=== PATIENT | female | born 1970 | race Caucasian/White ===

== ENCOUNTER 2016-12-12 00:30 | Emergency (ER) | payer SELFPAY ==
--- NOTE | 2016-12-12 06:00 | ED ORDER SUMMARY ---
..... Patient: ANDERSON COLON OrderSheet [facility] VisitID: [id number] [place] [address] 46y, F Registration Date/Time: 12/12/2016 ORDER SHEET Weight: 66.2 kg Allergies: Penicillin GENERAL ORDERS: UA-Culture if indicated Urgent (00:50 12/12/2016 TBowen R.N. per protocol) (0:50 TBowen R.N.) CBC w Diff Urgent (01:04 12/12/2016 Mane CASTILLO) (Ack 1:08 OSnell) (1:12 TBowen R.N.) CMP Urgent (01:04 12/12/2016 Mane CASTILLO) (Ack 1:08 OSnell) (1:12 TBowen R.N.) Ethyl Alcohol Urgent (01:04 12/12/2016 Mane CASTILLO) (Ack 1:08 OSnell) (1:12 TBowen R.N.) MEDICATION ORDERS: IV FLUIDS: Ceftriaxone IV 2 gm/50mL (NOW) (02:41 12/12/2016 Mane CASTILLO) (Ack 2:42 HSoule) (2:51 TBowen R.N.) IV Saline Lock (02:41 12/12/2016 Mane CASTILLO) (Ack 2:42 HSoule) (3:01 TBowen R.N.) ORDER SHEET NOTES: [Electronically signed by Yissel Boucher R.N. (06:14 12/12/2016)] [Electronically signed by Chris Coffamn MD (12:54 12/14/2016)] [Electronically locked/signed by Yissel Boucher R.N. (06:14 12/12/2016)]
--- NOTE | 2016-12-12 06:00 | ED ORDER SUMMARY ---
..... Patient: ANDERSON COLON OrderSheet [facility] VisitID: [id number] [place] [address] 46y, F Registration Date/Time: 12/12/2016 ORDER SHEET Weight: 66.2 kg Allergies: Penicillin GENERAL ORDERS: UA-Culture if indicated Urgent (00:50 12/12/2016 TBowen R.N. per protocol) (0:50 TBowen R.N.) CBC w Diff Urgent (01:04 12/12/2016 Mane CASTILLO) (Ack 1:08 OSnell) (1:12 TBowen R.N.) CMP Urgent (01:04 12/12/2016 Mane CASTILLO) (Ack 1:08 OSnell) (1:12 TBowen R.N.) Ethyl Alcohol Urgent (01:04 12/12/2016 Mane CASTILLO) (Ack 1:08 OSnell) (1:12 TBowen R.N.) MEDICATION ORDERS: IV FLUIDS: Ceftriaxone IV 2 gm/50mL (NOW) (02:41 12/12/2016 Mane CASTILLO) (Ack 2:42 HSoule) (2:51 TBowen R.N.) IV Saline Lock (02:41 12/12/2016 Mane CASTILLO) (Ack 2:42 HSoule) (3:01 TBowen R.N.) ORDER SHEET NOTES: [Electronically signed by Yissel Boucher R.N. (06:14 12/12/2016)] [Electronically signed by Chris Coffman MD (12:54 12/14/2016)] [Electronically locked/signed by Yissel Boucher R.N. (06:14 12/12/2016)]
--- NOTE | 2016-12-12 06:00 | ED CLINICAL REPORT ---
Clinical Report - Physicians/Mid Levels [facility] [address] [place] [address] 12/12/2016 0:31 Patient: ANDERSON COLON Time Seen: 00:52. Arrived- By private vehicle. Historian- patient. HISTORY OF PRESENT ILLNESS Chief Complaint: WEAK ALL OVER. This started UNKNOWN ONSET; Ms Colon has been homeless for most of the last 17 years except for when she was being treated for cervical cancer. Tonight she was at a [employer] and had the proprietor call 911 because of generalized weakness. and is still present. At its maximum, severity described as mild. When seen in the E.D., severity described as mild. Modifying factors. Not worsened by anything. Not relieved by anything. No headache or visual disturbance. She has had fatigue and generalized weakness. (Homeless for years). Recent medical care: Not recently seen/assessed. REVIEW OF SYSTEMS No fever, sore throat, cough, difficulty breathing or chest pain. No abdominal pain, nausea, vomiting, diarrhea or black stools. No bloody stools, difficulty with urination or calf pain. The patient has had chills. No difficulty with ambulation. PAST HISTORY Cervical cancer -. SOCIAL HISTORY Alcohol use. History of drug use: methamphetamines. ADDITIONAL NOTES The nursing notes have been reviewed. PHYSICAL EXAM Vital Signs: 12/12/2016 06:12 BP: 121/62. HR: 71. RR: 16. O2 saturation: 99%. Temp: 98.4 F. Pain level now: 0/10. 12/12/2016 00:32 BP: 107/73. HR: 84. RR: 16. O2 saturation: 100%. Temp: 97.7 F. Pain level now: 0/10. Appearance: Alert. No acute distress. Eyes: Eyes normal inspection. ENT: Pharynx normal. Neck: Normal inspection. CVS: Heart sounds normal. Respiratory: No respiratory distress. Breath sounds normal. Abdomen: No visible injury. Soft and nontender. Back: Normal inspection. Skin: Skin warm. Normal skin color. Extremities: Extremities exhibit normal ROM. Neuro: No cranial nerve deficit. No motor deficit. No weakness. LABS, X-RAYS, AND EKG Laboratory Tests: UA-Culture if indicated: (CLARY: 12/12/2016 00:45) ( [facility] 12/12/2016 01:09) Final results Test Result Flag Units (Reference) URINE COLOR YELLOW URINE APPEARANCE CLOUDY URINE GLUCOSE NEGATIVE (NEGATIVE) URINE BILIRUBIN NEGATIVE (NEGATIVE) URINE KETONE NEGATIVE (NEGATIVE) URINE SPECIFIC GRAVITY >= 1.030 (1.010-1.030) URINE PH 6.0 (5.0-8.0) URINE PROTEIN 3+ (NEGATIVE) URINE UROBILINOGEN 1.0 EU/dL (0.2-1.0) URINE NITRITE POSITIVE (NEGATIVE) URINE BLOOD 2+ (NEGATIVE) URINE LEUK ESTERASE POSITIVE (NEGATIVE) URINE RBC 5-10 rbc/hpf (0-1) URINE WBC 75-100 wbc/hpf (0-1) URINE EPITHELIAL CELLS 1-3 EPI/hpf (0-5) URINE BACTERIA MODERATE (2+ TO 3+) (NONE SEEN) URINE COMMENT CULTURE INDICATED SHORT SAMPLE, THEREFORE MICROSCOPIC WAS PERFORMED ONUNCENTRIFUGED URINE. MICROSCOPIC COUNTS MAY BEINACCURATE/DECREASED.FEW TRANSITIONAL EPITHELIAL CELLS.1+ MUCOUS.URINE CULTURES ARE SET-UP BASED ON THE FOLLOWING CRITERIA:POSITIVE NITRITEPOSITIVE LEUKOCYTE ESTERASEGREATER THAN 10 WHITE BLOOD CELLSMODERATE (2+) OR GREATER BACTERIA CBC w Diff: (CLARY: 12/12/2016 01:10) ( [facility] 12/12/2016 01:17) Final results Test Result Flag Units (Reference) WHITE BLOOD COUNT 4.0 L K/uL (4.5-11.5) RED BLOOD COUNT 3.43 L M/uL (4.00-5.20) HEMOGLOBIN 11.3 L gm/dL (12.0-16.0) HEMATOCRIT 32.9 L % (36.0-46.0) MEAN CELL VOLUME 96 fL (80-100) MEAN CORPUSCULAR HGB 33 pg (26-34) MEAN CORPUSCULAR HGB CONC 34 g/dL (31-37) RED CELL DISTRIBUTION WIDTH 13.5 % (11.6-14.8) PLATELET COUNT 190 K/uL (150-400) NEUTROPHIL % 65.5 % (50-75) LYMPH % 20.3 L % (25-40) MONO % 11.7 % (3-14) EOSINOPHIL % 2.1 % (0-4) BASOPHIL % 0.4 % (0-2) CMP: (CLARY: 12/12/2016 01:10) ( [facility] Final results Test Result Flag Units (Reference) GLUCOSE 113 H mg/dL (70-110) BUN 9 mg/dL (7-18) CREATININE 0.8 mg/dL (0.6-1.3) Estimated GFR >60 mL/min Estimated GFR- >60 mL/min Note: Persistent reduction over 3 months in eGFR<60 mL/min/1.73 m2 defines CKD. Patients with eGFR values>=60 mL/min/1.73 m2 may also have CKD if evidence ofpersistent proteinuria. Additional information may be foundat www.kidney.org. SODIUM 144 mmol/L (136-145) POTASSIUM 3.5 mmol/L (3.5-5.1) CHLORIDE 107 mmol/L (98-107) CARBON DIOXIDE 28 mmol/L (21-32) CALCIUM 8.1 L mg/dL (8.5-10.1) TOTAL PROTEIN 7.2 g/dL (6.4-8.2) ALBUMIN 3.6 g/dL (3.3-5.0) BILIRUBIN, TOTAL 0.3 mg/dL (0.0-1.0) ALKALINE PHOSPHATASE 88 U/L (46-116) AST (SGOT) 48 H U/L (15-37) ALT (SGPT) 55 U/L (12-78) ETHYL ALCOHOL 18 H mg/dL (3-10) Culture, Urine: (CLARY: 12/12/2016 00:45) ( [facility]14[facility] 11:13) Final results Test Result Flag Units (Reference) CULTURE, URINE DATE: 12/14/16 PRELIM REPORT: FINAL REPORT -- ESCCOL ESBL ISOLATED?: ESBL ISOLATED * QUANTITATIVE URINE GROWTH: GREATER THAN 100,000 CFU/mL -- MXD QUANTITATIVE URINE GROWTH: 10,000 TO 50,000 CFU/mL ID AND SENS TO FOLLOW: NO FURTHER WORKUP AMOXICILLIN/CLAVULANATE AMPICILLIN R AMPICILLIN/SULBACTAM R CEFAZOLIN R CEFTRIAXONE R CEFEPIME R CEFUROXIME CIPROFLOXACIN R ERTAPENEM S GENTAMICIN S IMIPENEM S LEVOFLOXACIN R MEROPENEM S NITROFURANTOIN S TETRACYCLINE PIP/TAZO S TRIMETHOPRIM/SULFAMETHOXAZOLE R . PROGRESS AND PROCEDURES Course of Care: Ms Colon has a UTI. No other significant abnormalities She was treated with IV Ceftriazone because of less than certain follow up. No systemic symptoms to indicate pyelo. Disposition: Discharged. Condition: stable. CLINICAL IMPRESSION Acute urinary tract infection. HOMELESSNESS. INSTRUCTIONS (PLEASE CONSIDER SUBSTANCE ABUSE TREATMENT: JORDEN POLLARD OR JACEY BRANCH OF [place] MYLAM WE TREATED YOUR URINARY TRACT INFECTION WITH CEFTRIAXONE. YOU ALSO HAVE MACROBID TO TAKE BY MOUTH IMMEDIATE RECHECK IN THE ED IF YOU HAVE FEVER, VOMITING OR IF YOU ARE STILL HAVING URINARY TRACT INFECTION SYMPTOMS.). Prescription Medications: Macrobid 100 mg: Take 1 capsule orally every 12 hours for 7 days. No refills. Substitution is permissible. (Electronically signed by Chris Coffman MD 12/14/2016 12:54)
--- NOTE | 2016-12-12 06:00 | ED CLINICAL REPORT ---
Clinical Report - Physicians/Mid Levels [facility] [address] [place] [address] 12/12/2016 0:31 Patient: ANDERSON COLON Time Seen: 00:52. Arrived- By private vehicle. Historian- patient. HISTORY OF PRESENT ILLNESS Chief Complaint: WEAK ALL OVER. This started UNKNOWN ONSET; Ms Colon has been homeless for most of the last 17 years except for when she was being treated for cervical cancer. Tonight she was at a [employer] and had the proprietor call 911 because of generalized weakness. and is still present. At its maximum, severity described as mild. When seen in the E.D., severity described as mild. Modifying factors. Not worsened by anything. Not relieved by anything. No headache or visual disturbance. She has had fatigue and generalized weakness. (Homeless for years). Recent medical care: Not recently seen/assessed. REVIEW OF SYSTEMS No fever, sore throat, cough, difficulty breathing or chest pain. No abdominal pain, nausea, vomiting, diarrhea or black stools. No bloody stools, difficulty with urination or calf pain. The patient has had chills. No difficulty with ambulation. PAST HISTORY Cervical cancer -. SOCIAL HISTORY Alcohol use. History of drug use: methamphetamines. ADDITIONAL NOTES The nursing notes have been reviewed. PHYSICAL EXAM Vital Signs: 12/12/2016 06:12 BP: 121/62. HR: 71. RR: 16. O2 saturation: 99%. Temp: 98.4 F. Pain level now: 0/10. 12/12/2016 00:32 BP: 107/73. HR: 84. RR: 16. O2 saturation: 100%. Temp: 97.7 F. Pain level now: 0/10. Appearance: Alert. No acute distress. Eyes: Eyes normal inspection. ENT: Pharynx normal. Neck: Normal inspection. CVS: Heart sounds normal. Respiratory: No respiratory distress. Breath sounds normal. Abdomen: No visible injury. Soft and nontender. Back: Normal inspection. Skin: Skin warm. Normal skin color. Extremities: Extremities exhibit normal ROM. Neuro: No cranial nerve deficit. No motor deficit. No weakness. LABS, X-RAYS, AND EKG Laboratory Tests: UA-Culture if indicated: (CLARY: 12/12/2016 00:45) ( [facility] 12/12/2016 01:09) Final results Test Result Flag Units (Reference) URINE COLOR YELLOW URINE APPEARANCE CLOUDY URINE GLUCOSE NEGATIVE (NEGATIVE) URINE BILIRUBIN NEGATIVE (NEGATIVE) URINE KETONE NEGATIVE (NEGATIVE) URINE SPECIFIC GRAVITY >= 1.030 (1.010-1.030) URINE PH 6.0 (5.0-8.0) URINE PROTEIN 3+ (NEGATIVE) URINE UROBILINOGEN 1.0 EU/dL (0.2-1.0) URINE NITRITE POSITIVE (NEGATIVE) URINE BLOOD 2+ (NEGATIVE) URINE LEUK ESTERASE POSITIVE (NEGATIVE) URINE RBC 5-10 rbc/hpf (0-1) URINE WBC 75-100 wbc/hpf (0-1) URINE EPITHELIAL CELLS 1-3 EPI/hpf (0-5) URINE BACTERIA MODERATE (2+ TO 3+) (NONE SEEN) URINE COMMENT CULTURE INDICATED SHORT SAMPLE, THEREFORE MICROSCOPIC WAS PERFORMED ONUNCENTRIFUGED URINE. MICROSCOPIC COUNTS MAY BEINACCURATE/DECREASED.FEW TRANSITIONAL EPITHELIAL CELLS.1+ MUCOUS.URINE CULTURES ARE SET-UP BASED ON THE FOLLOWING CRITERIA:POSITIVE NITRITEPOSITIVE LEUKOCYTE ESTERASEGREATER THAN 10 WHITE BLOOD CELLSMODERATE (2+) OR GREATER BACTERIA CBC w Diff: (CLARY: 12/12/2016 01:10) ( [facility] 12/12/2016 01:17) Final results Test Result Flag Units (Reference) WHITE BLOOD COUNT 4.0 L K/uL (4.5-11.5) RED BLOOD COUNT 3.43 L M/uL (4.00-5.20) HEMOGLOBIN 11.3 L gm/dL (12.0-16.0) HEMATOCRIT 32.9 L % (36.0-46.0) MEAN CELL VOLUME 96 fL (80-100) MEAN CORPUSCULAR HGB 33 pg (26-34) MEAN CORPUSCULAR HGB CONC 34 g/dL (31-37) RED CELL DISTRIBUTION WIDTH 13.5 % (11.6-14.8) PLATELET COUNT 190 K/uL (150-400) NEUTROPHIL % 65.5 % (50-75) LYMPH % 20.3 L % (25-40) MONO % 11.7 % (3-14) EOSINOPHIL % 2.1 % (0-4) BASOPHIL % 0.4 % (0-2) CMP: (CLARY: 12/12/2016 01:10) ( [facility]) Final results Test Result Flag Units (Reference) GLUCOSE 113 H mg/dL (70-110) BUN 9 mg/dL (7-18) CREATININE 0.8 mg/dL (0.6-1.3) Estimated GFR >60 mL/min Estimated GFR- >60 mL/min Note: Persistent reduction over 3 months in eGFR<60 mL/min/1.73 m2 defines CKD. Patients with eGFR values>=60 mL/min/1.73 m2 may also have CKD if evidence ofpersistent proteinuria. Additional information may be foundat www.kidney.org. SODIUM 144 mmol/L (136-145) POTASSIUM 3.5 mmol/L (3.5-5.1) CHLORIDE 107 mmol/L (98-107) CARBON DIOXIDE 28 mmol/L (21-32) CALCIUM 8.1 L mg/dL (8.5-10.1) TOTAL PROTEIN 7.2 g/dL (6.4-8.2) ALBUMIN 3.6 g/dL (3.3-5.0) BILIRUBIN, TOTAL 0.3 mg/dL (0.0-1.0) ALKALINE PHOSPHATASE 88 U/L (46-116) AST (SGOT) 48 H U/L (15-37) ALT (SGPT) 55 U/L (12-78) ETHYL ALCOHOL 18 H mg/dL (3-10) Culture, Urine: (CLARY: 12/12/2016 00:45) ( [facility]/14[facility]2016 11:13) Final results Test Result Flag Units (Reference) CULTURE, URINE DATE: 12/14/16 PRELIM REPORT: FINAL REPORT -- ESCCOL ESBL ISOLATED?: ESBL ISOLATED * QUANTITATIVE URINE GROWTH: GREATER THAN 100,000 CFU/mL -- MXD QUANTITATIVE URINE GROWTH: 10,000 TO 50,000 CFU/mL ID AND SENS TO FOLLOW: NO FURTHER WORKUP AMOXICILLIN/CLAVULANATE AMPICILLIN R AMPICILLIN/SULBACTAM R CEFAZOLIN R CEFTRIAXONE R CEFEPIME R CEFUROXIME CIPROFLOXACIN R ERTAPENEM S GENTAMICIN S IMIPENEM S LEVOFLOXACIN R MEROPENEM S NITROFURANTOIN S TETRACYCLINE PIP/TAZO S TRIMETHOPRIM/SULFAMETHOXAZOLE R . PROGRESS AND PROCEDURES Course of Care: Ms Colon has a UTI. No other significant abnormalities She was treated with IV Ceftriazone because of less than certain follow up. No systemic symptoms to indicate pyelo. Disposition: Discharged. Condition: stable. CLINICAL IMPRESSION Acute urinary tract infection. HOMELESSNESS. INSTRUCTIONS (PLEASE CONSIDER SUBSTANCE ABUSE TREATMENT: JORDEN POLLARD OR JACEY BRANCH OF [place] MYLAM WE TREATED YOUR URINARY TRACT INFECTION WITH CEFTRIAXONE. YOU ALSO HAVE MACROBID TO TAKE BY MOUTH IMMEDIATE RECHECK IN THE ED IF YOU HAVE FEVER, VOMITING OR IF YOU ARE STILL HAVING URINARY TRACT INFECTION SYMPTOMS.). Prescription Medications: Macrobid 100 mg: Take 1 capsule orally every 12 hours for 7 days. No refills. Substitution is permissible. (Electronically signed by Chris Coffman MD 12/14/2016 12:54)
--- NOTE | 2016-12-12 06:00 | ED NURSING NOTES ---
Clinical Report - Nurses [facility] [address] [place] [address] 12/12/2016 0:31 Patient: ANDERSON COLON TRIAGE Triage time 00:32. Acuity: LEVEL 3. Chief Complaint: MUSCLE ACHES and WEAKNESS. --00:36 TonyaB, R.N. 00:32 12/12/16. BP: 107/73. HR: 84. RR: 16. O2 saturation: 100%. Temp: 97.7 F. Pain level now: 0. --00:36 TonyaB, R.N. Weight: 66.2 kg. Height/Length: 65 inches. BMI: 24.3. --00:35 TonyaB, R.N. Medications None. --00:33 TonyaB, R.N. Allergies Penicillin. --00:33 TonyaB, R.N. History Arrived by EMS. Historian: patient. This started just prior to arrival. 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 PAST MEDICAL HX: Immunizations: up-to-date. The patient is post-menopausal. SOCIAL HX: Heavy tobacco smoker (cigarette)- less than 1 pack per day. Alcohol use; consumes a large amount of beer daily. History of heavy drug use: methamphetamines. Recently used drugs today. No infectious disease exposure. SELF HARM ASSESSMENT: A self harm assessment was performed. The patient answered "no" to the question "Have you recently felt down, depressed, or hopeless?", "Have you noticed less interest or pleasure in doing things?", "Do you have thoughts of harming or killing yourself?", "Are you here because you tried to hurt yourself?", "Have you ever tried to hurt yourself before today?", "Have you recently had thoughts about harming or killing others?" and "Do you have any dangerous items in your possession?". FALL RISK ASSESSMENT: Fall risk assessment completed. No fall risk identified. NUTRITIONAL RISK ASSESSMENT: The nutritional risk assessment revealed no deficiencies. FUNCTIONAL ASSESSMENT: Functional assessment: no impairments noted. LEARNING NEEDS ASSESSMENT: The learning needs assessment revealed no barriers. ABUSE ASSESSMENT: Abuse assessment: The patient was asked "Do you feel safe in your home?". SKIN INTEGRITY ASSESSMENT: Skin integrity risk assessment completed. No skin integrity risk identified. --00:36 Martin To. PROBLEMS: Cancer. --00:34 Martin To. Interventions ID band on patient. To treatment room. --00:36 Martin To. PHYSICAL ASSESSMENT To room via stretcher. GENERAL / NEURO / PSYCH: Alert. Oriented X 4. Appears in no acute distress. HEENT: Pupils equal, round and reactive to light. No facial asymmetry noted. Mucous membranes are pink. RESPIRATORY: Respirations not labored. Chest nontender. Breath sounds within normal limits. CVS: Normal sinus rhythm noted. Capillary refill less than 2 seconds. Pulses within normal limits. GI / : Abdomen soft and nontender and normal bowel sounds. SKIN: Skin is warm and dry. Generalized skin rash. Normal skin turgor. --00:36 Martin To. NURSING PROGRESS NOTES Patient identifiers checked. Call light placed in reach. Side rails up. Bed placed in lowest position. Brakes of bed on. --00:36 Twyla To ( pt ambulated to the restroom, no complications). --00:42 Martin To. Patient ID band checked for patient name and birthdate: patient confirmed. Blood samples drawn from the right antecubital space with Vacutainer and 18g butterfly by nurse ; labeled in presence of the patient and sent to lab: [facility]. --01:13 Twyla To 02:51 12/12/2016 Site #1 started via IV in the left antecubital space with an 20g angiocath, with aseptic technique and good blood return; one attempt. Saline lock flushed with 10 mL saline. --02:51 Twyla To 02:51 12/12/2016 Started 2 gm of Ceftriaxone IVPB in bag #1 50 mL; at 100 mL/hr over 30 minute(s) via site #1 via IV pump. Allergies verified and confirmed 5 rights. IV patency established. IV site checked: no pain, redness, or swelling. IV flushed thoroughly pre- and post-medication administration. --02:51 Twyla To ( sandwich and soda given to the pt at this time). --02:52 Twyla To 03:23 12/12/2016 Ceftriaxone IVPB Discontinued: bag #1 infused. Total amount infused: 50 mL. IV patency established. IV site checked: no pain, redness, or swelling. IV flushed thoroughly. --03:48 Twyla To ( pt resting in bed, no distress noted, awaiting MD to dispo). --04:17 Twyla To The patient is sleeping. --05:24 Twyla To DISPOSITION / DISCHARGE 06:12 12/12/2016 Site #1 removed upon discharge. Catheter intact. Pressure dressing applied. --06:12 Twyla To Departure time: 06:13. Condition at departure: improved. No learning barriers present. Discharge instructions provided and reviewed with the patient. Reviewed medication(s) side effects, precautions, dosing and course information. Prescription(s) given to the patient. Patient verbalized understanding. Written instructions provided in Greenlandic. No warning instructions, treatment instructions, referrals given to the patient, diet instructions or activity restrictions. No note given, follow up contact number given or stop smoking instructions. The patient was discharged by the physician. She was discharged home. She left the Emergency Department ambulatory and via (walking). Driving (na). FALL RISK ASSESSMENT: Fall risk assessment completed. No fall risk identified. --06:13 Twyla To 06:11 12/12/16. BP: 121/62. HR: 71. RR: 16. O2 saturation: 99%. Temp: 98.4 F. Pain level now: 0/10. --06:13 Twyla To Locked/Released at 12/12/2016 6:14 by Twyla To
--- NOTE | 2016-12-14 12:55 | ED MAR SUMMARY ---
..... Medication Administration Record Merged With [facility] [address] [place] [address] Patient: ANDERSON COLON Visit ID: [id number] 46y, F Weight: 66.2 kg Height/Length: 65 in BMI: 24.3 ALLERGIES: Penicillin Start 02:51 12/12/2016 Yousuf RJuanN., Stop 03:23 12/12/2016 Twyla To Medication Administered: CEFTRIAXONE [IVPB], Dose: 2 gm IVPB over 30 minute(s), Rate: 100 mL/hr, Dispensed: 50 mL bag, Site: #1 left AC. Medication Ordered: Ceftriaxone IV 2 gm/50mL (NOW).
--- NOTE | 2016-12-14 12:55 | ED DISCHARGE INSTRUCTIONS ---
Patient: ANDERSON COLON General Instructions [facility] VisitID: [id number] [place] [address] 46y, F Registration Date/Time: 12/12/2016 Acute urinary tract infection. HOMELESSNESS. INSTRUCTIONS (PLEASE CONSIDER SUBSTANCE ABUSE TREATMENT: EVERCIARA POLLARD OR JACEY BRANCH OF [place] MYLAM WE TREATED YOUR URINARY TRACT INFECTION WITH CEFTRIAXONE. YOU ALSO HAVE MACROBID TO TAKE BY MOUTH IMMEDIATE RECHECK IN THE ED IF YOU HAVE FEVER, VOMITING OR IF YOU ARE STILL HAVING URINARY TRACT INFECTION SYMPTOMS.). Prescription Medications: Macrobid 100 mg: Take 1 capsule orally every 12 hours for 7 days. No refills. Substitution is permissible. ADDITIONAL INFORMATION Bladder Infection,Female (Adult) A bladder infection ("cystitis" or "UTI") usually causes a constant urge to urinate and a burning when passing urine. Urine may be cloudy, smelly or dark. There may be pain in the lower abdomen. A bladder infection occurs when bacteria from the vaginal area enter the bladder opening (urethra). This can occur from sexual intercourse, wearing tight clothing, dehydration and other factors. Home Care: Drink lots of fluids (at least 6-8 glasses a day, unless you must restrict fluids for other medical reasons). This will force the medicine into your urinary system and flush the bacteria out of your body. Avoid sexual intercourse until your symptoms are gone. Avoid caffeine, alcohol and spicy foods. These can irritate the bladder. A bladder infection is treated with antibiotics. You may also be given Pyridium (generic = phenazopyridine) to reduce the burning sensation. This medicine will cause your urine to become a bright orange color. The orange urine may stain clothing. You may wear a pad or panty-liner to protect clothing. Preventing Future Infections: Always wipe from front to back after a bowel movement. Keep the genital area clean and dry. Drink plenty of fluids each day to avoid dehydration. Both sexual partners should wash before intercourse. Urinate right after intercourse to flush out the bladder. Wear cotton underwear and cotton-lined panty hose; avoid tight-fitting pants. If you are on control pills and are having frequent bladder infections, discuss with your doctor. Follow Up: Return to this facility or see your doctor if ALL symptoms are not gone after three days of treatment. Get Prompt Medical Attention if any of the following occur: Fever of 100.4F (38C) or higher, or as directed by your healthcare provider No improvement by the third day of treatment Increasing back or abdominal pain Repeated vomiting; unable to keep medicine down Weakness, dizziness or fainting Vaginal discharge Pain, redness or swelling in the labia (outer vaginal area) You have been given the following additional information: Bladder Infection, Female (Adult) (Electronically signed by Chris Coffman MD 12/14/2016 12:54)
--- NOTE | 2016-12-14 12:55 | ED DISCHARGE INSTRUCTIONS ---
Patient: ANDERSON COLON General Instructions [facility] VisitID: [id number] [place] [address] 46y, F Registration Date/Time: 12/12/2016 Acute urinary tract infection. HOMELESSNESS. INSTRUCTIONS (PLEASE CONSIDER SUBSTANCE ABUSE TREATMENT: EVERCIARA POLLARD OR JACEY BRANCH OF DAMASCUS MYLAM WE TREATED YOUR URINARY TRACT INFECTION WITH CEFTRIAXONE. YOU ALSO HAVE MACROBID TO TAKE BY MOUTH IMMEDIATE RECHECK IN THE ED IF YOU HAVE FEVER, VOMITING OR IF YOU ARE STILL HAVING URINARY TRACT INFECTION SYMPTOMS.). Prescription Medications: Macrobid 100 mg: Take 1 capsule orally every 12 hours for 7 days. No refills. Substitution is permissible. ADDITIONAL INFORMATION Bladder Infection,Female (Adult) A bladder infection ("cystitis" or "UTI") usually causes a constant urge to urinate and a burning when passing urine. Urine may be cloudy, smelly or dark. There may be pain in the lower abdomen. A bladder infection occurs when bacteria from the vaginal area enter the bladder opening (urethra). This can occur from sexual intercourse, wearing tight clothing, dehydration and other factors. Home Care: Drink lots of fluids (at least 6-8 glasses a day, unless you must restrict fluids for other medical reasons). This will force the medicine into your urinary system and flush the bacteria out of your body. Avoid sexual intercourse until your symptoms are gone. Avoid caffeine, alcohol and spicy foods. These can irritate the bladder. A bladder infection is treated with antibiotics. You may also be given Pyridium (generic = phenazopyridine) to reduce the burning sensation. This medicine will cause your urine to become a bright orange color. The orange urine may stain clothing. You may wear a pad or panty-liner to protect clothing. Preventing Future Infections: Always wipe from front to back after a bowel movement. Keep the genital area clean and dry. Drink plenty of fluids each day to avoid dehydration. Both sexual partners should wash before intercourse. Urinate right after intercourse to flush out the bladder. Wear cotton underwear and cotton-lined panty hose; avoid tight-fitting pants. If you are on control pills and are having frequent bladder infections, discuss with your doctor. Follow Up: Return to this facility or see your doctor if ALL symptoms are not gone after three days of treatment. Get Prompt Medical Attention if any of the following occur: Fever of 100.4F (38C) or higher, or as directed by your healthcare provider No improvement by the third day of treatment Increasing back or abdominal pain Repeated vomiting; unable to keep medicine down Weakness, dizziness or fainting Vaginal discharge Pain, redness or swelling in the labia (outer vaginal area) You have been given the following additional information: Bladder Infection, Female (Adult) (Electronically signed by Chris Coffman MD 12/14/2016 12:54)
--- NOTE | 2016-12-14 12:55 | ED MED RECONCILIATION SUMMARY ---
Patient: ANDERSON COLON Medication Reconciliation Report [facility] VisitID: [id number] [address] [place] [address] 46y, F Registration Date/Time: 12/12/2016 Weight: 66.2 kg Height/Length: 65 in. BMI: 24.3 ALLERGIES: Penicillin The patient's Home Medications are listed below: NONE. The source(s) of the original Home Medication information: Not obtained. The following Medications were given to the patient in the Emergency Department: Ceftriaxone [IVPB] IVPB bolus 0, then 2 gm 100 mL/hr, administered: 12/12/2016 2:51:00 AM The following Medications were prescribed to the patient: Macrobid 100 mg: Take 1 capsule orally every 12 hours for 7 days. No refills. Substitution is permissible. -- Chris Coffman MD
--- NOTE | 2016-12-14 12:55 | ED MAR SUMMARY ---
..... Medication Administration Record [facility] [address] [place] [address] Patient: ANDERSON COLON Visit ID: [id number] 46y, F Weight: 66.2 kg Height/Length: 65 in BMI: 24.3 ALLERGIES: Penicillin Start 02:51 12/12/2016 Yousuf RJuanN., Stop 03:23 12/12/2016 Twyla To Medication Administered: CEFTRIAXONE [IVPB], Dose: 2 gm IVPB over 30 minute(s), Rate: 100 mL/hr, Dispensed: 50 mL bag, Site: #1 left AC. Medication Ordered: Ceftriaxone IV 2 gm/50mL (NOW).
--- NOTE | 2016-12-14 12:55 | ED MED RECONCILIATION SUMMARY ---
Patient: ANDERSON COLON Medication Reconciliation Report [facility] VisitID: [id number] [address] [place] [address] 46y, F Registration Date/Time: 12/12/2016 Weight: 66.2 kg Height/Length: 65 in. BMI: 24.3 ALLERGIES: Penicillin The patient's Home Medications are listed below: NONE. The source(s) of the original Home Medication information: Not obtained. The following Medications were given to the patient in the Emergency Department: Ceftriaxone [IVPB] IVPB bolus 0, then 2 gm 100 mL/hr, administered: 12/12/2016 2:51:00 AM The following Medications were prescribed to the patient: Macrobid 100 mg: Take 1 capsule orally every 12 hours for 7 days. No refills. Substitution is permissible. -- Chris Coffman MD
== END 2016-12-12 06:05 | disposition home or self-care (01) ==
LOC: ED SRH 00:30
DX: N39.0 Urinary tract infection, site not specified (principal); Z59.0 Homelessness; Z85.41 Personal history of malignant neoplasm of cervix uteri
CPT/HCPCS: 90004; 90100; 90148; 90469; 92010; 95059

== ENCOUNTER 2016-12-19 16:55 | Emergency (ER) | payer SELFPAY ==
--- NOTE | 2016-12-19 18:36 | ED ORDER SUMMARY ---
..... Patient: ANDERSON COLON OrderSheet [facility] VisitID: [id number] [address] [place] [address] 46y, F Registration Date/Time: 12/19/2016 ORDER SHEET Weight: 68.0 kg (stated) Allergies: Penicillin GENERAL ORDERS: UA-Culture if indicated Urgent (17:01 12/19/2016 Yadi Wakefield verbal order read back to Myrtle DAVIS) ([facility] 17:03 [facility] Tech1) MEDICATION ORDERS: IV FLUIDS: ORDER SHEET NOTES: [Electronically signed by Sheriff Twyla De Jesus (18:47 12/19/2016)] [Electronically signed by Eloisa Steward PA-C (23:54 12/19/2016)] [Electronically locked/signed by Sheriff Twyla De Jesus (18:47 12/19/2016)]
--- NOTE | 2016-12-19 18:36 | ED NURSING NOTES ---
Clinical Report - Nurses [facility] [address] [place] [address] 12/19/2016 16:54 Patient: ANDERSON COLON TRIAGE Triage time 16:58. Chief Complaint: VAGINAL BLEED and PAINFUL URINATION. --17:05 Sheriff De Jesus R.N. 16:58 12/19/16. BP: 119/60. HR: 101. RR: 20. O2 saturation: 99%. Temp: 98.8 F. Pain level now: 01/02. --17:05 Sheriff De Jesus R.N. Weight: 68 kg stated. Height/Length: 65 inches Per Patient. BMI: 25. --17:01 Sheriff De Jesus R.N. Medications None. --17:00 Sheriff De Jesus R.N. Allergies Penicillin. --17:00 Sheriff De Jesus R.N. History Arrived by private vehicle. Historian: patient. This started today. ( Vaginal bleeding, heavy since this morning. Painful urination. On antibiotic for current UTI.). PAST MEDICAL HX: Denies current . SURGERY HX: No history of previous surgery. SOCIAL HX: Heavy tobacco smoker- less than 1 pack per day. Occasional alcohol use. No drug use. SKIN INTEGRITY ASSESSMENT: Skin integrity risk assessment was performed. (SORES on bilateral legs). FALL RISK ASSESSMENT: Fall risk assessment completed. No fall risk identified. NUTRITIONAL RISK ASSESSMENT: The nutritional risk assessment revealed no deficiencies. FUNCTIONAL ASSESSMENT: Functional assessment: no impairments noted. LEARNING NEEDS ASSESSMENT: The learning needs assessment revealed no barriers. --17:05 Sheriff De Jesus R.N. PROBLEMS: UTI - Urinary Tract Infection. Cancer. --17:00 Sheriff De Jesus R.N. ADDITIONAL SURGERIES: no known surgeries. DISPOSITION / DISCHARGE Condition at departure: stable. No learning barriers present. Discharge instructions provided and reviewed with the patient. Reviewed medication(s) side effects, precautions, dosing and course information. Prescription(s) given to the patient. Patient verbalized understanding. Written instructions provided in Georgian. The patient was discharged by the physician accounting manager assistant controller. She was discharged home and accompanied by solar photovoltaic installer. She left the Emergency Department ambulatory and via ambulance. Calender Machine Operator Helper driving. --18:47 Sheriff De Jesus R.N. Locked/Released at 12/19/2016 18:47 by Sheriff De Jesus R.N.
--- NOTE | 2016-12-19 18:36 | ED ORDER SUMMARY ---
..... Patient: ANDERSON COLON OrderSheet [facility] VisitID: [id number] [address] [place] [address] 46y, F Registration Date/Time: 12/19/2016 ORDER SHEET Weight: 68.0 kg (stated) Allergies: Penicillin GENERAL ORDERS: UA-Culture if indicated Urgent (17:01 12/19/2016 Yadi Wakefield verbal order read back to Myrtle DAVIS) ([facility] 17:03 [facility] Tech1) MEDICATION ORDERS: IV FLUIDS: ORDER SHEET NOTES: [Electronically signed by Sheriff Twyla De Jesus (18:47 12/19/2016)] [Electronically signed by Eloisa Steward PA-C (23:54 12/19/2016)] [Electronically locked/signed by Sheriff Twyla De Jesus (18:47 12/19/2016)]
--- NOTE | 2016-12-19 18:36 | ED NURSING NOTES ---
Clinical Report - Nurses [facility] [address] [place] [address] 12/19/2016 16:54 Patient: ANDERSON COLON TRIAGE Triage time 16:58. Chief Complaint: VAGINAL BLEED and PAINFUL URINATION. --17:05 Sheriff De Jesus R.N. 16:58 12/19/16. BP: 119/60. HR: 101. RR: 20. O2 saturation: 99%. Temp: 98.8 F. Pain level now: 01/02. --17:05 Sheriff De Jesus R.N. Weight: 68 kg stated. Height/Length: 65 inches Per Patient. BMI: 25. --17:01 Sheriff De Jesus R.N. Medications None. --17:00 Sheriff De Jesus R.N. Allergies Penicillin. --17:00 Sheriff De Jesus R.N. History Arrived by private vehicle. Historian: patient. This started today. ( Vaginal bleeding, heavy since this morning. Painful urination. On antibiotic for current UTI.). PAST MEDICAL HX: Denies current . SURGERY HX: No history of previous surgery. SOCIAL HX: Heavy tobacco smoker- less than 1 pack per day. Occasional alcohol use. No drug use. SKIN INTEGRITY ASSESSMENT: Skin integrity risk assessment was performed. (SORES on bilateral legs). FALL RISK ASSESSMENT: Fall risk assessment completed. No fall risk identified. NUTRITIONAL RISK ASSESSMENT: The nutritional risk assessment revealed no deficiencies. FUNCTIONAL ASSESSMENT: Functional assessment: no impairments noted. LEARNING NEEDS ASSESSMENT: The learning needs assessment revealed no barriers. --17:05 Sheriff De Jesus R.N. PROBLEMS: UTI - Urinary Tract Infection. Cancer. --17:00 Sheriff De Jesus R.N. ADDITIONAL SURGERIES: no known surgeries. DISPOSITION / DISCHARGE Condition at departure: stable. No learning barriers present. Discharge instructions provided and reviewed with the patient. Reviewed medication(s) side effects, precautions, dosing and course information. Prescription(s) given to the patient. Patient verbalized understanding. Written instructions provided in [place]. The patient was discharged by the physician assistant foreman. She was discharged home and accompanied by blue print control clerk. She left the Emergency Department ambulatory and via ambulance. Transaction Advisory Services Manager driving. --18:47 Sheriff De Jesus R.N. Locked/Released at 12/19/2016 18:47 by Sheriff De Jesus R.N.
--- NOTE | 2016-12-19 18:36 | ED CLINICAL REPORT ---
Clinical Report - Physicians/Mid Levels [facility] [address] [place] [address] 12/19/2016 16:54 Patient: ANDERSON COLON Time Seen: 17:27; initial patient contact. Arrived- By private vehicle. Historian- patient. HISTORY OF PRESENT ILLNESS Chief Complaint: VAGINAL BLEEDING. This started today ( Vaginal bleeding, heavy since this morning. Painful urination. On antibiotic for current UTI.). 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 The patient has had abdominal pain. She has had a copious amount of yellow vaginal discharge. She has had pain with urination and urgency of urination. The patient has had urinary frequency and hematuria. Not sexually active. Does not use control measures. Similar symptoms previously: Many times. Recent medical care: The patient was seen recently at another facility in a clinic (on macrobid). REVIEW OF SYSTEMS The patient has had a headache and anorexia. All systems otherwise negative, except as recorded above. PAST HISTORY See nurses notes. Problems: Lifestyle / Substance Problems. Cancer. Additional Surgeries: no known surgeries. Medications: None. Allergies: Penicillin. SOCIAL HISTORY Regular alcohol use. Last drink was just prior to arrival, 3 hours ago. History of drug use 14 days ago: methamphetamines. Is a recovering addict. FAMILY HISTORY Negative. ADDITIONAL NOTES The nursing notes have been reviewed with agreement regarding the chief complaint, HPI, ROS, PMH and patient medications and allergies. PHYSICAL EXAM Vital Signs: 12/19/2016 16:58 BP: 119/60. HR: 101. RR: 20. O2 saturation: 99%. Temp: 98.8 F. Pain level now: 6/10. Have been reviewed. Blood pressure normal. Appearance: Alert. Oriented X3. No acute distress. Anxious. ( aggitated, feels no one listens to her is trying to stay clean, has not been using methamphetamines in 2 weeks, admits to 4 beers today). She appears uncomfortable, is restless, appears hostile and agitated and appears unkempt. She appears malnourished. Anxious. Patient in mild distress. ENT: Pharynx normal. Neck: Neck supple. CVS: Heart sounds normal. Respiratory: No respiratory distress. Breath sounds normal. Chest nontender. Abdomen: Soft. Mild tenderness in the suprapubic area with guarding present. No rebound tenderness. No organomegaly. No mass. Back: Normal external inspection. : Speculum exam performed. A copious amount of thin and yellow vaginal discharge present (urine). No cervicitis. Tenderness present on bimanual exam. No tenderness with movement of the cervix. (pt has a fistula between the superior aspect of her vagina and her bladder with redness and minor bleeding in area and copious amounts of urine coming into the vagina from the fistula.). Extremities: Bilateral mild 1+ pitting edema of the lower extremities involving both feet. Neuro: Oriented X 3. LABS, X-RAYS, AND EKG Laboratory Tests: UA-Culture if indicated: (CLARY: 12/19/2016 17:05) ( [id number] 12/19/2016 17:29) Final results Test Result Flag Units (Reference) URINE COLOR YELLOW URINE APPEARANCE CLEAR URINE GLUCOSE NEGATIVE (NEGATIVE) URINE BILIRUBIN NEGATIVE (NEGATIVE) URINE KETONE TRACE (NEGATIVE) URINE SPECIFIC GRAVITY 1.020 (1.010-1.030) URINE PH 6.0 (5.0-8.0) URINE PROTEIN TRACE (NEGATIVE) URINE UROBILINOGEN 1.0 EU/dL (0.2-1.0) URINE NITRITE NEGATIVE (NEGATIVE) URINE BLOOD NEGATIVE (NEGATIVE) URINE LEUK ESTERASE POSITIVE (NEGATIVE) URINE RBC NONE SEEN rbc/hpf (0-1) URINE WBC 15-25 wbc/hpf (0-1) URINE EPITHELIAL CELLS 0-1 EPI/hpf (0-5) URINE BACTERIA FEW (1+) (NONE SEEN) URINE COMMENT CULTURE INDICATED URINE CULTURES ARE SET-UP BASED ON THE FOLLOWING CRITERIA:POSITIVE NITRITEPOSITIVE LEUKOCYTE ESTERASEGREATER THAN 10 WHITE BLOOD CELLSMODERATE (2+) OR GREATER BACTERIA . PROGRESS AND PROCEDURES Course of Care: upon discharge patient became agitated, stated that she is now feeling 'suicidal and wants to kill herself'. pt was then readmitted for psych evaluation with the PAT team who was present in the Ed and agreed to see her. Patient is stable. CLINICAL IMPRESSION Acute urinary tract infection with cystitis. 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 INSTRUCTIONS No strenuous activity. Rest. Drink plenty of fluids. (pt re admitted for psych evaluation after discharge dispositon for uti/fistula.). Warnings: Further evaluation is necessary. GENERAL WARNINGS: Return or contact your physician immediately if your condition worsens or changes unexpectedly, if not improving as expected, or if other problems arise. Prescription Medications: Levaquin 500 mg: take 1 tab orally every day for 10 days. No refills. Substitution is permissible. Understanding of the discharge instructions verbalized by patient. (Electronically signed by Eloisa Steward PA-C 12/19/2016 23:54)
--- NOTE | 2016-12-19 23:54 | ED MAR SUMMARY ---
..... Medication Administration Record [facility] [address] [place], [place] [id number] Patient: ANDERSON COLON Visit ID: [id number] 46y, F Weight: 68.0 kg Height/Length: 65 in BMI: 25 ALLERGIES: Penicillin
--- NOTE | 2016-12-19 23:54 | ED MAR SUMMARY ---
..... Medication Administration Record [facility] [address] [place], [place] [id number] Patient: ANDERSON COLON Visit ID: [id number] 46y, F Weight: 68.0 kg Height/Length: 65 in BMI: 25 ALLERGIES: Penicillin
--- NOTE | 2016-12-19 23:54 | ED MED RECONCILIATION SUMMARY ---
Patient: ANDERSON COLON Medication Reconciliation Report [facility] VisitID: [id number] [place] [address] 46y, F Registration Date/Time: 12/19/2016 Weight: 68.0 kg Height/Length: 65 in. BMI: 25.0 ALLERGIES: Penicillin The patient's Home Medications are listed below: NONE. The source(s) of the original Home Medication information: Not obtained. The following Medications were given to the patient in the Emergency Department: None. The following Medications were prescribed to the patient: Levaquin 500 mg: take 1 tab orally every day for 10 days. No refills. Substitution is permissible. -- Eloisa Steward PA-C
--- NOTE | 2016-12-19 23:54 | ED DISCHARGE INSTRUCTIONS ---
Patient: ANDERSON COLON General Instructions [facility] VisitID: [id number] [address] [place] [address] 46y, F Registration Date/Time: 12/19/2016 Acute urinary tract infection with cystitis. 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 INSTRUCTIONS No strenuous activity. Rest. Drink plenty of fluids. (pt re admitted for psych evaluation after discharge dispositon for uti/fistula.). Warnings: Further evaluation is necessary. GENERAL WARNINGS: Return or contact your physician immediately if your condition worsens or changes unexpectedly, if not improving as expected, or if other problems arise. Prescription Medications: Levaquin 500 mg: take 1 tab orally every day for 10 days. No refills. Substitution is permissible. Understanding of the discharge instructions verbalized by patient. No strenuous activity. Rest. (Electronically signed by Eloisa Steward PA-C 12/19/2016 23:54)
--- NOTE | 2016-12-19 23:54 | ED DISCHARGE INSTRUCTIONS ---
Patient: ANDERSON COLON General Instructions [facility] VisitID: [id number] [address] [place] [address] 46y, F Registration Date/Time: 12/19/2016 Acute urinary tract infection with cystitis. 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 INSTRUCTIONS No strenuous activity. Rest. Drink plenty of fluids. (pt re admitted for psych evaluation after discharge dispositon for uti/fistula.). Warnings: Further evaluation is necessary. GENERAL WARNINGS: Return or contact your physician immediately if your condition worsens or changes unexpectedly, if not improving as expected, or if other problems arise. Prescription Medications: Levaquin 500 mg: take 1 tab orally every day for 10 days. No refills. Substitution is permissible. Understanding of the discharge instructions verbalized by patient. No strenuous activity. Rest. (Electronically signed by Eloisa Steward PA-C 12/19/2016 23:54)
--- NOTE | 2016-12-19 23:54 | ED MED RECONCILIATION SUMMARY ---
Patient: ANDERSON COLON Medication Reconciliation Report [facility] VisitID: [id number] [place] [address] 46y, F Registration Date/Time: 12/19/2016 Weight: 68.0 kg Height/Length: 65 in. BMI: 25.0 ALLERGIES: Penicillin The patient's Home Medications are listed below: NONE. The source(s) of the original Home Medication information: Not obtained. The following Medications were given to the patient in the Emergency Department: None. The following Medications were prescribed to the patient: Levaquin 500 mg: take 1 tab orally every day for 10 days. No refills. Substitution is permissible. -- Eloisa Steward PA-C
== END 2016-12-19 18:45 | disposition home or self-care (01) ==
LOC: ED SRH 16:55
DX: N30.00 Acute cystitis without hematuria (principal); N82.8 Other female genital tract fistulae; F17.210 Nicotine dependence, cigarettes, uncomplicated; Z88.0 Allergy status to penicillin
CPT/HCPCS: 90004; 90469

== ENCOUNTER 2016-12-19 18:59 | Emergency (ER) | payer SELFPAY ==
--- NOTE | 2016-12-19 22:02 | ED CLINICAL REPORT ---
Clinical Report - Physicians/Mid Levels [facility] [address] [place] [address] 12/19/2016 18:59 Patient: ANDERSON COLON Time Seen: 19:09; initial patient contact. Arrived- By private vehicle. Historian- patient. HISTORY OF PRESENT ILLNESS Chief Complaint: ANXIOUS, DEPRESSED, BEHAVIOR CHANGE and SUICIDAL THOUGHTS, NEED SOMEONE TO TALK TO and AGITATED and ANGRY. This started just prior to arrival. (pt became aggitated upon discharge for uti/fistula, states she is 'suicidal' and wants to kill herself because nobody will listen to her...). The patient has experienced situational problems. Recent methamphetamines use. Recent alcohol consumption (beer). Last drink was less than 12 hours ago. She is under influence in ED. The patient has had anxiety. Has been depressed and angry. The symptoms are described as moderate. No injury is present. Similar symptoms previously: Recent medical care: The patient was seen recently by a health care provider. REVIEW OF SYSTEMS The patient has had urinary frequency. All systems otherwise negative, except as recorded above. PAST HISTORY See nurses notes. Longstanding history of drug abuse- amphetamines (trying to stop). SOCIAL HISTORY Smoker- current status unknown (cigarette). Alcohol use. No social support. No place to stay. FAMILY HISTORY Negative. ADDITIONAL NOTES The nursing notes have been reviewed with agreement regarding the chief complaint, HPI, ROS, PMH and patient medications and allergies. PHYSICAL EXAM Vital Signs: 12/19/2016 19:34 BP: 130/80. HR: 102. RR: 18. O2 saturation: 98%. Temp: 98.1 F. Have been reviewed. Appearance: Alert. No acute distress. Appearance is normal. Anxious. She appears agitated. Eyes: Pupils equal, round and reactive to light. Neck: Normal inspection. CVS: Normal heart rate and rhythm. Heart sounds normal. Respiratory: Breath sounds normal. Chest nontender. Skin: Skin warm and dry. Normal skin color. Normal skin turgor. Extremities: No lower extremity edema. Psych / Neuro: Oriented X 3. Appears depressed. The patient exhibits altered thought processes. She expresses suicidal thoughts. Insight and judgement normal. Cranial nerves normal (as tested). No cerebellar findings. No motor deficit. No sensory deficit. Reflexes normal. LABS, X-RAYS, AND EKG Laboratory Tests: Urine: (CLARY: 12/19/2016 17:05) ( [facility] 12/19/2016 21:07) Final results Test Result Flag Units (Reference) URINE NEGATIVE CBC w Diff: (CLARY: 12/19/2016 19:15) ( [facility] 12/19/2016 19:30) Final results Test Result Flag Units (Reference) WHITE BLOOD COUNT 4.5 K/uL (4.5-11.5) RED BLOOD COUNT 3.43 L M/uL (4.00-5.20) HEMOGLOBIN 11.3 L gm/dL (12.0-16.0) HEMATOCRIT 33.0 L % (36.0-46.0) MEAN CELL VOLUME 96 fL (80-100) MEAN CORPUSCULAR HGB 33 pg (26-34) MEAN CORPUSCULAR HGB CONC 34 g/dL (31-37) RED CELL DISTRIBUTION WIDTH 14.2 % (11.6-14.8) PLATELET COUNT 221 K/uL (150-400) NEUTROPHIL % 68.5 % (50-75) LYMPH % 18.9 L % (25-40) MONO % 9.9 % (3-14) EOSINOPHIL % 2.1 % (0-4) BASOPHIL % 0.6 % (0-2) Urine Drug Screen: (CLARY: 12/19/2016 17:05) ( [facility] 12/19/2016 21:35) Final results Test Result Flag Units (Reference) AMPHETAMINE/METHAMPHETAMINE POSITIVE H (NEGATIVE) QUANTITY IS NOT ENOUGH TO RUN CONFIRMATORY TEST. BARBITURATE NEGATIVE (NEGATIVE) BENZODIAZEPINE NEGATIVE (NEGATIVE) CANNABINOID NEGATIVE (NEGATIVE) COCAINE NEGATIVE (NEGATIVE) ECSTASY NEGATIVE (NEGATIVE) METHADONE NEGATIVE (NEGATIVE) OPIATE NEGATIVE (NEGATIVE) The urine drug screen is a qualitative screening test fordrug overdose and abuse. All screen results should beconsidered as presumptive.Drugs screened for are as follows:BenzodiazepinesCocaineAmphetamines/MetamphetaminesTHC (Tetrahydrocannabinol)OpiatesBarbituratesEcstasyMethadonePositive results are unconfirmed. For confirmation, notifythe lab for the specimen to be sent to the reference lab.All confirmations must be performed by a differentmethodology.The ingestion of natural herbal and plant productscontaining Ephedra/Ephedra metabolites can produce in urineone or more substances capable of cross reacting withamphetamine/methamphetamine immunoassays. These testsprovide a preliminary result only. A more specificalternative chemical method must be used to obtain aconfirmed analytical result. CMP: (CLARY: 12/19/2016 19:15) ( MsgRcvd 12/19/2016 20:00) Final results Test Result Flag Units (Reference) GLUCOSE 102 mg/dL (70-110) BUN 11 mg/dL (7-18) CREATININE 0.8 mg/dL (0.6-1.3) Estimated GFR >60 mL/min Estimated GFR- >60 mL/min Note: Persistent reduction over 3 months in eGFR<60 mL/min/1.73 m2 defines CKD. Patients with eGFR values>=60 mL/min/1.73 m2 may also have CKD if evidence ofpersistent proteinuria. Additional information may be foundat www.kidney.org. SODIUM 141 mmol/L (136-145) POTASSIUM 3.5 mmol/L (3.5-5.1) CHLORIDE 104 mmol/L (98-107) CARBON DIOXIDE 24 mmol/L (21-32) CALCIUM 8.3 L mg/dL (8.5-10.1) TOTAL PROTEIN 7.4 g/dL (6.4-8.2) ALBUMIN 3.4 g/dL (3.3-5.0) BILIRUBIN, TOTAL 0.3 mg/dL (0.0-1.0) ALKALINE PHOSPHATASE 90 U/L (46-116) AST (SGOT) 45 H U/L (15-37) ALT (SGPT) 38 U/L (12-78) UA-Culture if indicated: (CLARY: 12/19/2016 17:05) ( MsgRcvd 12/19/2016 17:29) Final results Test Result Flag (Reference) URINE COLOR YELLOW URINE APPEARANCE CLEAR URINE GLUCOSE NEGATIVE (NEGATIVE) URINE BILIRUBIN NEGATIVE (NEGATIVE) URINE KETONE TRACE (NEGATIVE) URINE SPECIFIC GRAVITY 1.020 (1.010-1.030) URINE PH 6.0 (5.0-8.0) URINE PROTEIN TRACE (NEGATIVE) URINE UROBILINOGEN 1.0 EU/dL (0.2-1.0) URINE NITRITE NEGATIVE (NEGATIVE) URINE BLOOD NEGATIVE (NEGATIVE) URINE LEUK ESTERASE POSITIVE (NEGATIVE) URINE RBC NONE SEEN rbc/hpf (0-1) URINE WBC 15-25 wbc/hpf (0-1) URINE EPITHELIAL CELLS 0-1 EPI/hpf (0-5) URINE BACTERIA FEW (1+) (NONE SEEN) URINE COMMENT CULTURE INDICATED URINE CULTURES ARE SET-UP BASED ON THE FOLLOWING CRITERIA: POSITIVE NITRITE POSITIVE LEUKOCYTE ESTERASE GREATER THAN 10 WHITE BLOOD CELLS MODERATE (2+) OR GREATER BACTERIA . PROGRESS AND PROCEDURES Course of Care: Head of bed elevated. Two patient identifiers checked. Call light placed in reach. Side rails up x 2. Bed placed in lowest position. Brakes of bed on. --19:49 Sheriff De Jesus R.N. 17:30. Finger stick glucose: 70; ordered; performed by Simalaya; result shown to the PA. ( Breathalyzer showed .045). --20:15 George Campos ER Tech1 Patient ID band checked for patient name and birthdate: patient confirmed. Blood samples drawn from the right antecubital space with butterfly by monica per protocol ; labeled in presence of the patient and sent to lab: rainbow set. --20:16 George Campos ER Tech1 ( Breathalyzer result .000%). --20:51 Alondra Serrano 21:02 12/19/16. ( Physician doing a walking test with patient). --21:02 Елена Dior R.N. Charted On Wrong Patient --21:02 Елена Dior R.N. Patient is stable. Physical exam findings are improved. Symptoms better. Consult obtained from mental health. Case discussed. Will see patient in the ED. Consultation performed in ED. Consult note reviewed. Agree with treatment plan. Patient disposition per healthcare management consultant. Patient/family counseled. Disposition orders written. Disposition: Transferred. CLINICAL IMPRESSION Uncomplicated alcohol intoxication with alcohol dependence. 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 Recurrent moderate major depressive disorder without psychosis and with suicidal ideation. Substance abuse problems: abuse of methamphetamine. INSTRUCTIONS Stay with responsible adult family member (or other responsible adult). No dietary restrictions. No alcohol. (pt is being transferred to the [facility] triage center.). Warnings: Further evaluation is necessary. Prescription Medications: Levaquin 500 mg: take 1 tab orally every day for 10 days. No refills. Substitution is permissible. Follow-up: Follow up with a psychiatrist. Understanding of the discharge instructions verbalized by patient. (Electronically signed by Eloisa Steward PA-C 12/19/2016 23:27)
--- NOTE | 2016-12-19 22:02 | ED NURSING NOTES ---
Clinical Report - Nurses [facility] [address] [place] [address] 12/19/2016 18:59 Patient: ANDERSON COLON TRIAGE Triage time 19:34. Acuity: LEVEL 3. Chief Complaint: SUICIDAL THOUGHTS. --19:38 Sheriff De Jesus R.N. 19:34 12/19/16. BP: 130/80. HR: 102. RR: 18. O2 saturation: 98% at 5 liters/minute. Temp: 98.1 F. --19:38 Sheriff De Jesus R.N. Weight: 58.9 kg stated. Height/Length: 65 inches Per Patient. BMI: 21.6. --19:36 Sheriff De Jesus R.N. Medications None. --19:35 Sheriff De Jesus R.N. Allergies Penicillin. --19:35 Sheriff De Jesus R.N. History Arrived by EMS. Historian: patient. Accompanied by spouse. Onset. (2 hours ago). SURGERY HX: No history of previous surgery. SOCIAL HX: Light tobacco smoker- less than 1/2 a pack per day. Occasional alcohol use. No drug use. FALL RISK ASSESSMENT: Fall risk assessment completed. No fall risk identified. NUTRITIONAL RISK ASSESSMENT: The nutritional risk assessment revealed no deficiencies. FUNCTIONAL ASSESSMENT: Functional assessment: no impairments noted. LEARNING NEEDS ASSESSMENT: The learning needs assessment revealed no barriers. SKIN INTEGRITY ASSESSMENT: Skin integrity risk assessment completed. No skin integrity risk identified. --19:38 Sheriff De Jesus R.N. PROBLEMS: UTI - Urinary Tract Infection. Cancer. --19:35 Sheriff De Jesus R.N. Interventions ID band on patient. --19:38 Sheriff De Jesus R.N. PHYSICAL ASSESSMENT Ambulatory to room. Patient gowned. GENERAL / NEURO / PSYCH: Alert. Oriented X 4. Appears in no acute distress. Speech within normal limits. Affect appears normal. Patient appears calm and cooperative. Good eye contact. RESPIRATORY: Respirations not labored. CVS: Capillary refill less than 2 seconds. SKIN: Skin intact. Skin is warm and dry. Skin color is within normal limits. --19:49 Sheriff De Jesus R.N. NURSING PROGRESS NOTES Head of bed elevated. Two patient identifiers checked. Call light placed in reach. Side rails up x 2. Bed placed in lowest position. Brakes of bed on. --19:49 Sheriff De Jesus R.N. 17:30. Finger stick glucose: 70; ordered; performed by tech; result shown to the PA. ( Breathalyzer showed .045). --20:15 George Campos ER Tech1 Patient ID band checked for patient name and birthdate: patient confirmed. Blood samples drawn from the right antecubital space with butterfly by tech per protocol ; labeled in presence of the patient and sent to lab: rainbow set. --20:16 George Campos ER Tech1 ( Breathalyzer result .000%). --20:51 Alondra Serrano <<STRICKEN ENTRY-- 21:02 12/19/16. ( Physician doing a walking test with patient). --21:02 Елена Dior R.N. --END STRIKE>> Charted On Wrong Patient --21:02 Елена Dior R.N. 22:06 12/19/2016 Levofloxacin PO 500 mg given. Allergies verified and confirmed 5 rights. --22:06 Sheriff De Jesus R.N. Finger stick glucose: 91; performed by nurse. --22:39 Sheriff De Jesus R.N. DISPOSITION / DISCHARGE No learning barriers present. Discharge instructions provided and reviewed. Reviewed medication(s) side effects, precautions and dosing information. Prescription(s) given to the patient. Patient verbalized understanding. Written instructions provided in French. The patient was discharged by the physician tax assistant. She was discharged ([facility]) and accompanied by EMS. She left the Emergency Department via ambulance and on a stretcher. Driving (EMS). --23:58 Sheriff De Jesus R.N. Locked/Released at 12/20/2016 0:04 by Sheriff De Jesus R.N.
--- NOTE | 2016-12-19 22:02 | ED NURSING NOTES ---
Clinical Report - Nurses [facility] [address] [place] [address] 12/19/2016 18:59 Patient: ANDERSON COLON TRIAGE Triage time 19:34. Acuity: LEVEL 3. Chief Complaint: SUICIDAL THOUGHTS. --19:38 Sheriff De Jesus R.N. 19:34 12/19/16. BP: 130/80. HR: 102. RR: 18. O2 saturation: 98% at 5 liters/minute. Temp: 98.1 F. --19:38 Sheriff De Jesus R.N. Weight: 58.9 kg stated. Height/Length: 65 inches Per Patient. BMI: 21.6. --19:36 Sheriff De Jesus R.N. Medications None. --19:35 Sheriff De Jesus R.N. Allergies Penicillin. --19:35 Sheriff De Jesus R.N. History Arrived by EMS. Historian: patient. Accompanied by spouse. Onset. (2 hours ago). SURGERY HX: No history of previous surgery. SOCIAL HX: Light tobacco smoker- less than 1/2 a pack per day. Occasional alcohol use. No drug use. FALL RISK ASSESSMENT: Fall risk assessment completed. No fall risk identified. NUTRITIONAL RISK ASSESSMENT: The nutritional risk assessment revealed no deficiencies. FUNCTIONAL ASSESSMENT: Functional assessment: no impairments noted. LEARNING NEEDS ASSESSMENT: The learning needs assessment revealed no barriers. SKIN INTEGRITY ASSESSMENT: Skin integrity risk assessment completed. No skin integrity risk identified. --19:38 Sheriff De Jesus R.N. PROBLEMS: UTI - Urinary Tract Infection. Cancer. --19:35 Sheriff De Jesus R.N. Interventions ID band on patient. --19:38 Sheriff De Jesus R.N. PHYSICAL ASSESSMENT Ambulatory to room. Patient gowned. GENERAL / NEURO / PSYCH: Alert. Oriented X 4. Appears in no acute distress. Speech within normal limits. Affect appears normal. Patient appears calm and cooperative. Good eye contact. RESPIRATORY: Respirations not labored. CVS: Capillary refill less than 2 seconds. SKIN: Skin intact. Skin is warm and dry. Skin color is within normal limits. --19:49 Sheriff De Jesus R.N. NURSING PROGRESS NOTES Head of bed elevated. Two patient identifiers checked. Call light placed in reach. Side rails up x 2. Bed placed in lowest position. Brakes of bed on. --19:49 Sheriff De Jesus R.N. 17:30. Finger stick glucose: 70; ordered; performed by tech; result shown to the PA. ( Breathalyzer showed .045). --20:15 George Campos ER Tech1 Patient ID band checked for patient name and birthdate: patient confirmed. Blood samples drawn from the right antecubital space with butterfly by tech per protocol ; labeled in presence of the patient and sent to lab: rainbow set. --20:16 George Campos ER Tech1 ( Breathalyzer result .000%). --20:51 Alondra Serrano <<STRICKEN ENTRY-- 21:02 12/19/16. ( Physician doing a walking test with patient). --21:02 Елена Dior R.N. --END STRIKE>> Charted On Wrong Patient --21:02 Елена Dior R.N. 22:06 12/19/2016 Levofloxacin PO 500 mg given. Allergies verified and confirmed 5 rights. --22:06 Sheriff De Jesus R.N. Finger stick glucose: 91; performed by nurse. --22:39 Sheriff De Jesus R.N. DISPOSITION / DISCHARGE No learning barriers present. Discharge instructions provided and reviewed. Reviewed medication(s) side effects, precautions and dosing information. Prescription(s) given to the patient. Patient verbalized understanding. Written instructions provided in Maori. The patient was discharged by the physician medical staff assistant. She was discharged ([facility]) and accompanied by EMS. She left the Emergency Department via ambulance and on a stretcher. Driving (EMS). --23:58 Sheriff De Jesus R.N. Locked/Released at 12/20/2016 0:04 by Sheriff De Jesus R.N.
--- NOTE | 2016-12-19 22:02 | ED ORDER SUMMARY ---
..... Patient: ANDERSON COLON OrderSheet [facility] VisitID: [id number] [address] [place] [address] 46y, F Registration Date/Time: 12/19/2016 ORDER SHEET Weight: 58.9 kg (stated) Allergies: Penicillin GENERAL ORDERS: CBC w Diff Urgent (19:05 12/19/2016 ABlanchette PA-C) (Ack 19:07 IJurca ER Tech1) (22:28 ALawrence ER Tech1) CMP Urgent (19:05 12/19/2016 ABlanchette PA-C) (Ack 19:07 IJurca ER Tech1) (22:28 ALawrence ER Tech1) Urine Drug Screen Urgent (19:05 12/19/2016 ABlanchette PA-C) (Ack 19:07 IJurca ER Tech1) (22:28 ALawrence ER Tech1) Urine Urgent (19:05 12/19/2016 ABlanchette PA-C) (Ack 19:07 IJurca ER Tech1) (22:28 ALawrence ER Tech1) POC Glucose (19:05 12/19/2016 ABlanchette PA-C) (Ack 19:07 IJurca ER Tech1) (22:39 CHagerty ER Advertising Space Clerk) POC Breathalyzer (19:05 12/19/2016 ABlanchette PA-C) (Ack 19:07 IJurca ER Tech1) (22:39 CHagerty ER Advertising Space Clerk) MEDICATION ORDERS: Levofloxacin PO 500 mg (NOW) (22:04 12/19/2016 ABlanchette PA-C) (22:06 Kendy R.N.) IV FLUIDS: ORDER SHEET NOTES: [Electronically signed by Eloisa Steward PA-C (23:27 12/19/2016)] [Electronically signed by Sheriff Twyla De Jesus (00:04 12/20/2016)] [Electronically locked/signed by Sheriff Twyla De Jesus (00:04 12/20/2016)]
--- NOTE | 2016-12-19 22:02 | ED ORDER SUMMARY ---
..... Patient: ANDERSON COLON OrderSheet [facility] VisitID: [id number] [address] [place] [address] 46y, F Registration Date/Time: 12/19/2016 ORDER SHEET Weight: 58.9 kg (stated) Allergies: Penicillin GENERAL ORDERS: CBC w Diff Urgent (19:05 12/19/2016 ABlanchette PA-C) (Ack 19:07 IJurca ER Tech1) (22:28 ALawrence ER Tech1) CMP Urgent (19:05 12/19/2016 ABlanchette PA-C) (Ack 19:07 IJurca ER Tech1) (22:28 ALawrence ER Tech1) Urine Drug Screen Urgent (19:05 12/19/2016 ABlanchette PA-C) (Ack 19:07 IJurca ER Tech1) (22:28 ALawrence ER Tech1) Urine Urgent (19:05 12/19/2016 ABlanchette PA-C) (Ack 19:07 IJurca ER Tech1) (22:28 ALawrence ER Tech1) POC Glucose (19:05 12/19/2016 ABlanchette PA-C) (Ack 19:07 IJurca ER Tech1) (22:39 CHagerty ER Charting Clerk) POC Breathalyzer (19:05 12/19/2016 ABlanchette PA-C) (Ack 19:07 IJurca ER Tech1) (22:39 CHagerty ER Charting Clerk) MEDICATION ORDERS: Levofloxacin PO 500 mg (NOW) (22:04 12/19/2016 ABlanchette PA-C) (22:06 Kendy R.N.) IV FLUIDS: ORDER SHEET NOTES: [Electronically signed by Eloisa Steward PA-C (23:27 12/19/2016)] [Electronically signed by Sheriff Twyla De Jesus (00:04 12/20/2016)] [Electronically locked/signed by Sheriff Twyla De Jesus (00:04 12/20/2016)]
--- NOTE | 2016-12-19 22:02 | ED CLINICAL REPORT ---
Clinical Report - Physicians/Mid Levels [facility] [address] [place] [address] 12/19/2016 18:59 Patient: ANDERSON COLON Time Seen: 19:09; initial patient contact. Arrived- By private vehicle. Historian- patient. HISTORY OF PRESENT ILLNESS Chief Complaint: ANXIOUS, DEPRESSED, BEHAVIOR CHANGE and SUICIDAL THOUGHTS, NEED SOMEONE TO TALK TO and AGITATED and ANGRY. This started just prior to arrival. (pt became aggitated upon discharge for uti/fistula, states she is 'suicidal' and wants to kill herself because nobody will listen to her...). The patient has experienced situational problems. Recent methamphetamines use. Recent alcohol consumption (beer). Last drink was less than 12 hours ago. She is under influence in ED. The patient has had anxiety. Has been depressed and angry. The symptoms are described as moderate. No injury is present. Similar symptoms previously: Recent medical care: The patient was seen recently by a health care provider. REVIEW OF SYSTEMS The patient has had urinary frequency. All systems otherwise negative, except as recorded above. PAST HISTORY See nurses notes. Longstanding history of drug abuse- amphetamines (trying to stop). SOCIAL HISTORY Smoker- current status unknown (cigarette). Alcohol use. No social support. No place to stay. FAMILY HISTORY Negative. ADDITIONAL NOTES The nursing notes have been reviewed with agreement regarding the chief complaint, HPI, ROS, PMH and patient medications and allergies. PHYSICAL EXAM Vital Signs: 12/19/2016 19:34 BP: 130/80. HR: 102. RR: 18. O2 saturation: 98%. Temp: 98.1 F. Have been reviewed. Appearance: Alert. No acute distress. Appearance is normal. Anxious. She appears agitated. Eyes: Pupils equal, round and reactive to light. Neck: Normal inspection. CVS: Normal heart rate and rhythm. Heart sounds normal. Respiratory: Breath sounds normal. Chest nontender. Skin: Skin warm and dry. Normal skin color. Normal skin turgor. Extremities: No lower extremity edema. Psych / Neuro: Oriented X 3. Appears depressed. The patient exhibits altered thought processes. She expresses suicidal thoughts. Insight and judgement normal. Cranial nerves normal (as tested). No cerebellar findings. No motor deficit. No sensory deficit. Reflexes normal. LABS, X-RAYS, AND EKG Laboratory Tests: Urine: (CLARY: 12/19/2016 17:05) ( [facility] 12/19/2016 21:07) Final results Test Result Flag Units (Reference) URINE NEGATIVE CBC w Diff: (CLARY: 12/19/2016 19:15) ( [facility] 12/19/2016 19:30) Final results Test Result Flag Units (Reference) WHITE BLOOD COUNT 4.5 K/uL (4.5-11.5) RED BLOOD COUNT 3.43 L M/uL (4.00-5.20) HEMOGLOBIN 11.3 L gm/dL (12.0-16.0) HEMATOCRIT 33.0 L % (36.0-46.0) MEAN CELL VOLUME 96 fL (80-100) MEAN CORPUSCULAR HGB 33 pg (26-34) MEAN CORPUSCULAR HGB CONC 34 g/dL (31-37) RED CELL DISTRIBUTION WIDTH 14.2 % (11.6-14.8) PLATELET COUNT 221 K/uL (150-400) NEUTROPHIL % 68.5 % (50-75) LYMPH % 18.9 L % (25-40) MONO % 9.9 % (3-14) EOSINOPHIL % 2.1 % (0-4) BASOPHIL % 0.6 % (0-2) Urine Drug Screen: (CLARY: 12/19/2016 17:05) ( [facility] 12/19/2016 21:35) Final results Test Result Flag Units (Reference) AMPHETAMINE/METHAMPHETAMINE POSITIVE H (NEGATIVE) QUANTITY IS NOT ENOUGH TO RUN CONFIRMATORY TEST. BARBITURATE NEGATIVE (NEGATIVE) BENZODIAZEPINE NEGATIVE (NEGATIVE) CANNABINOID NEGATIVE (NEGATIVE) COCAINE NEGATIVE (NEGATIVE) ECSTASY NEGATIVE (NEGATIVE) METHADONE NEGATIVE (NEGATIVE) OPIATE NEGATIVE (NEGATIVE) The urine drug screen is a qualitative screening test fordrug overdose and abuse. All screen results should beconsidered as presumptive.Drugs screened for are as follows:BenzodiazepinesCocaineAmphetamines/MetamphetaminesTHC (Tetrahydrocannabinol)OpiatesBarbituratesEcstasyMethadonePositive results are unconfirmed. For confirmation, notifythe lab for the specimen to be sent to the reference lab.All confirmations must be performed by a differentmethodology.The ingestion of natural herbal and plant productscontaining Ephedra/Ephedra metabolites can produce in urineone or more substances capable of cross reacting withamphetamine/methamphetamine immunoassays. These testsprovide a preliminary result only. A more specificalternative chemical method must be used to obtain aconfirmed analytical result. CMP: (CLARY: 12/19/2016 19:15) ( MsgRcvd 12/19/2016 20:00) Final results Test Result Flag Units (Reference) GLUCOSE 102 mg/dL (70-110) BUN 11 mg/dL (7-18) CREATININE 0.8 mg/dL (0.6-1.3) Estimated GFR >60 mL/min Estimated GFR- >60 mL/min Note: Persistent reduction over 3 months in eGFR<60 mL/min/1.73 m2 defines CKD. Patients with eGFR values>=60 mL/min/1.73 m2 may also have CKD if evidence ofpersistent proteinuria. Additional information may be foundat www.kidney.org. SODIUM 141 mmol/L (136-145) POTASSIUM 3.5 mmol/L (3.5-5.1) CHLORIDE 104 mmol/L (98-107) CARBON DIOXIDE 24 mmol/L (21-32) CALCIUM 8.3 L mg/dL (8.5-10.1) TOTAL PROTEIN 7.4 g/dL (6.4-8.2) ALBUMIN 3.4 g/dL (3.3-5.0) BILIRUBIN, TOTAL 0.3 mg/dL (0.0-1.0) ALKALINE PHOSPHATASE 90 U/L (46-116) AST (SGOT) 45 H U/L (15-37) ALT (SGPT) 38 U/L (12-78) UA-Culture if indicated: (CLARY: 12/19/2016 17:05) ( MsgRcvd 12/19/2016 17:29) Final results Test Result Flag (Reference) URINE COLOR YELLOW URINE APPEARANCE CLEAR URINE GLUCOSE NEGATIVE (NEGATIVE) URINE BILIRUBIN NEGATIVE (NEGATIVE) URINE KETONE TRACE (NEGATIVE) URINE SPECIFIC GRAVITY 1.020 (1.010-1.030) URINE PH 6.0 (5.0-8.0) URINE PROTEIN TRACE (NEGATIVE) URINE UROBILINOGEN 1.0 EU/dL (0.2-1.0) URINE NITRITE NEGATIVE (NEGATIVE) URINE BLOOD NEGATIVE (NEGATIVE) URINE LEUK ESTERASE POSITIVE (NEGATIVE) URINE RBC NONE SEEN rbc/hpf (0-1) URINE WBC 15-25 wbc/hpf (0-1) URINE EPITHELIAL CELLS 0-1 EPI/hpf (0-5) URINE BACTERIA FEW (1+) (NONE SEEN) URINE COMMENT CULTURE INDICATED URINE CULTURES ARE SET-UP BASED ON THE FOLLOWING CRITERIA: POSITIVE NITRITE POSITIVE LEUKOCYTE ESTERASE GREATER THAN 10 WHITE BLOOD CELLS MODERATE (2+) OR GREATER BACTERIA . PROGRESS AND PROCEDURES Course of Care: Head of bed elevated. Two patient identifiers checked. Call light placed in reach. Side rails up x 2. Bed placed in lowest position. Brakes of bed on. --19:49 Sheriff De Jesus R.N. 17:30. Finger stick glucose: 70; ordered; performed by [employer]; result shown to the PA. ( Breathalyzer showed .045). --20:15 George Campos ER Tech1 Patient ID band checked for patient name and birthdate: patient confirmed. Blood samples drawn from the right antecubital space with butterfly by monica per protocol ; labeled in presence of the patient and sent to lab: rainbow set. --20:16 George Campos ER Tech1 ( Breathalyzer result .000%). --20:51 Alondra Serrano 21:02 12/19/16. ( Physician doing a walking test with patient). --21:02 Елена Dior R.N. Charted On Wrong Patient --21:02 Елена Dior R.N. Patient is stable. Physical exam findings are improved. Symptoms better. Consult obtained from mental health. Case discussed. Will see patient in the ED. Consultation performed in ED. Consult note reviewed. Agree with treatment plan. Patient disposition per technical assistance consultant. Patient/family counseled. Disposition orders written. Disposition: Transferred. CLINICAL IMPRESSION Uncomplicated alcohol intoxication with alcohol dependence. 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 Recurrent moderate major depressive disorder without psychosis and with suicidal ideation. Substance abuse problems: abuse of methamphetamine. INSTRUCTIONS Stay with responsible adult family member (or other responsible adult). No dietary restrictions. No alcohol. (pt is being transferred to the [facility] triage center.). Warnings: Further evaluation is necessary. Prescription Medications: Levaquin 500 mg: take 1 tab orally every day for 10 days. No refills. Substitution is permissible. Follow-up: Follow up with a psychiatrist. Understanding of the discharge instructions verbalized by patient. (Electronically signed by Eloisa Steward PA-C 12/19/2016 23:27)
--- NOTE | 2016-12-20 00:05 | ED MAR SUMMARY ---
..... Medication Administration Record [facility] [address] [place] [address] Patient: ANDERSON COLON Visit ID: [id number] 46y, F Weight: 58.9 kg Height/Length: 65 in BMI: 21.6 ALLERGIES: Penicillin Given 22:06 12/19/2016 Sheriff De Jesus R.N. Medication Administered: LEVOFLOXACIN [PO], Dose: 500 mg PO. Medication Ordered: Levofloxacin PO 500 mg (NOW).
--- NOTE | 2016-12-20 00:05 | ED MAR SUMMARY ---
..... Medication Administration Record [facility] [address] [place] [address] Patient: ANDERSON COLON Visit ID: [id number] 46y, F Weight: 58.9 kg Height/Length: 65 in BMI: 21.6 ALLERGIES: Penicillin Given 22:06 12/19/2016 Sheriff De Jesus R.N. Medication Administered: LEVOFLOXACIN [PO], Dose: 500 mg PO. Medication Ordered: Levofloxacin PO 500 mg (NOW).
--- NOTE | 2016-12-20 00:05 | ED DISCHARGE INSTRUCTIONS ---
Patient: ANDERSON COLON General Instructions [facility] VisitID: [id number] [address] [place] [address] 46y, F Registration Date/Time: 12/19/2016 Uncomplicated alcohol intoxication with alcohol dependence. 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 Recurrent moderate major depressive disorder without psychosis and with suicidal ideation. Substance abuse problems: abuse of methamphetamine. INSTRUCTIONS Stay with responsible adult family member (or other responsible adult). No dietary restrictions. No alcohol. (pt is being transferred to the [facility] center.). Warnings: Further evaluation is necessary. Prescription Medications: Levaquin 500 mg: take 1 tab orally every day for 10 days. No refills. Substitution is permissible. Follow-up: Follow up with a psychiatrist. Understanding of the discharge instructions verbalized by patient. ADDITIONAL INFORMATION Depression Depression is one of the most common mental health problems today. It is not just a state of unhappiness or sadness. It is a true disease. The cause seems to be related to a decrease in chemicals that transmit signals in the brain. Having a family history of depression, alcoholism or suicide increases the risk. Chronic illness, chronic pain, migraine headaches and high emotional stress also increase the risk. Depression can cause many different symptoms, such as: -- Loss of appetite -- Over-eating -- Not being able to sleep -- Sleeping too much -- Tiredness not related to physical exertion -- Restlessness or irritability -- Slowness of movement or speech -- Feeling depressed or withdrawn -- Loss of interest in things you once enjoyed -- Difficulty in concentrating, poor memory, have trouble making decisions -- Thoughts of harming or killing oneself, or thoughts that life is not worth living -- Low self-esteem The best treatment for depression is a combination of medicine and psychotherapy. Antidepressant medicines can reduce suffering and can improve the ability to function during the depressed period. Therapy can offer emotional support and help you understand emotional factors that may be causing the depression. Home Care: 1) Be kind to yourself. Make it a point to do things that you enjoy (gardening, walking in nature, going to a movie, etc.). Reward yourself for small successes. 2) Take care of your physical body. Eat a balanced diet (low in saturated fat and high in fruits and vegetables). Establish an exercise plan at least 3 times a week for 30 minutes. Even mild-moderate exercise (like brisk walking) can make you feel better. 3) Avoid alcohol, which can make depression worse. Follow-Up with your doctor as advised. It is important to keep in contact with a health care provider until your symptoms begin to improve. Get Prompt Medical Attention if any of the following occur: -- Feeling extreme depression, fear, anxiety, or anger toward yourself or others -- Feeling out of control -- Feeling that you may try to harm yourself or another -- Hearing voices that others do not hear -- Seeing things that others do not see -- Cant sleep or eat for 3 days in a row Levofloxacin Oral tablet What is this medicine? LEVOFLOXACIN (ambreen wilks) is a quinolone antibiotic. It is used to treat certain kinds of bacterial infections. It will not work for colds, flu, or other viral infections. How should I use this medicine? Take this medicine by mouth with a full glass of water. Follow the directions on the prescription label. This medicine can be taken with or without food. Take your medicine at regular intervals. Do not take your medicine more often than directed. Do not skip doses or stop your medicine early even if you feel better. Do not stop taking except on your doctor's advice. A special MedGuide will be given to you by the pharmacist with each prescription and refill. Be sure to read this information carefully each time. Talk to your installation tech regarding the use of this medicine in children. While this drug may be prescribed for children as young as 6 months for selected conditions, precautions do apply. What side effects may I notice from receiving this medicine? Side effects that you should report to your doctor or health group care worker as soon as possible: -allergic reactions like skin rash or hives, swelling of the face, lips, or tongue -changes in vision -confusion, nightmares or hallucinations -difficulty breathing -irregular heartbeat, chest pain -joint, muscle or tendon pain -pain or difficulty passing urine -persistent headache with or without blurred vision -redness, blistering, peeling or loosening of the skin, including inside the mouth -seizures -unusual pain, numbness, tingling, or weakness -vaginal irritation, discharge Side effects that usually do not require medical attention (report to your doctor or health group care worker if they continue or are bothersome): -diarrhea -dry mouth -headache -stomach upset, nausea -trouble sleeping What may interact with this medicine? Do not take this medicine with any of the following medications: - arsenic trioxide - chloroquine - droperidol - medicines for irregular heart rhythm like amiodarone, disopyramide, dofetilide, flecainide, quinidine, procainamide, sotalol - some medicines for depression or mental problems like phenothiazines, pimozide, and ziprasidone This medicine may also interact with the following medications: - amoxapine -antacids - cisapride - dairy products - didanosine (ddI) buffered tablets or powder - haloperidol - multivitamins -NSAIDS, medicines for pain and inflammation, like ibuprofen or naproxen - retinoid products like tretinoin or isotretinoin - risperidone - some other antibiotics like clarithromycin or erythromycin - sucralfate - theophylline - warfarin What if I miss a dose? If you miss a dose, take it as soon as you remember. If it is almost time for your next dose, take only that dose. Do not take double or extra doses. Where should I keep my medicine? Keep out of the reach of children. Store at room temperature between 15 and 30 degrees C (59 and 86 degrees F). Keep in a tightly closed container. Throw away any unused medicine after the expiration date. What should I tell my health care provider before I take this medicine? They need to know if you have any of these conditions: cerebral disease irregular heartbeat kidney disease seizure disorder an unusual or allergic reaction to levofloxacin, other antibiotics or medicines, foods, dyes, or preservatives or trying to get breast-feeding What should I watch for while using this medicine? Tell your doctor or health group care worker if your symptoms do not improve or if they get worse. Drink several glasses of water a day and cut down on drinks that contain caffeine. You must not get dehydrated while taking this medicine. You may get drowsy or dizzy. Do not drive, use machinery, or do anything that needs mental alertness until you know how this medicine affects you. Do not sit or stand up quickly, especially if you are an older patient. This reduces the risk of dizzy or fainting spells. This medicine can make you more sensitive to the sun. Keep out of the sun. If you cannot avoid being in the sun, wear protective clothing and use a sunscreen. Do not use sun lamps or tanning beds/booths. Contact your doctor if you get a sunburn. If you are a diabetic monitor your blood glucose carefully. If you get an unusual reading stop taking this medicine and call your doctor right away. Do not treat diarrhea with hlug-wtd-expfink products. Contact your doctor if you have diarrhea that lasts more than 2 days or if the diarrhea is severe and watery. Avoid antacids, calcium, iron, and zinc products for 2 hours before and 2 hours after taking a dose of this medicine. You have been given the following additional information: Depression Levofloxacin Oral tablet Stay with responsible adult family member (or other responsible adult). (Electronically signed by Eloisa Steward PA-C 12/19/2016 23:27)
--- NOTE | 2016-12-20 00:05 | ED DISCHARGE INSTRUCTIONS ---
Patient: ANDERSON COLON General Instructions [facility] VisitID: [id number] [address] [place] [address] 46y, F Registration Date/Time: 12/19/2016 Uncomplicated alcohol intoxication with alcohol dependence. 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 Recurrent moderate major depressive disorder without psychosis and with suicidal ideation. Substance abuse problems: abuse of methamphetamine. INSTRUCTIONS Stay with responsible adult family member (or other responsible adult). No dietary restrictions. No alcohol. (pt is being transferred to the [facility] center[facility] Warnings: Further evaluation is necessary. Prescription Medications: Levaquin 500 mg: take 1 tab orally every day for 10 days. No refills. Substitution is permissible. Follow-up: Follow up with a psychiatrist. Understanding of the discharge instructions verbalized by patient. ADDITIONAL INFORMATION Depression Depression is one of the most common mental health problems today. It is not just a state of unhappiness or sadness. It is a true disease. The cause seems to be related to a decrease in chemicals that transmit signals in the brain. Having a family history of depression, alcoholism or suicide increases the risk. Chronic illness, chronic pain, migraine headaches and high emotional stress also increase the risk. Depression can cause many different symptoms, such as: -- Loss of appetite -- Over-eating -- Not being able to sleep -- Sleeping too much -- Tiredness not related to physical exertion -- Restlessness or irritability -- Slowness of movement or speech -- Feeling depressed or withdrawn -- Loss of interest in things you once enjoyed -- Difficulty in concentrating, poor memory, have trouble making decisions -- Thoughts of harming or killing oneself, or thoughts that life is not worth living -- Low self-esteem The best treatment for depression is a combination of medicine and psychotherapy. Antidepressant medicines can reduce suffering and can improve the ability to function during the depressed period. Therapy can offer emotional support and help you understand emotional factors that may be causing the depression. Home Care: 1) Be kind to yourself. Make it a point to do things that you enjoy (gardening, walking in nature, going to a movie, etc.). Reward yourself for small successes. 2) Take care of your physical body. Eat a balanced diet (low in saturated fat and high in fruits and vegetables). Establish an exercise plan at least 3 times a week for 30 minutes. Even mild-moderate exercise (like brisk walking) can make you feel better. 3) Avoid alcohol, which can make depression worse. Follow-Up with your doctor as advised. It is important to keep in contact with a health care provider until your symptoms begin to improve. Get Prompt Medical Attention if any of the following occur: -- Feeling extreme depression, fear, anxiety, or anger toward yourself or others -- Feeling out of control -- Feeling that you may try to harm yourself or another -- Hearing voices that others do not hear -- Seeing things that others do not see -- Cant sleep or eat for 3 days in a row Levofloxacin Oral tablet What is this medicine? LEVOFLOXACIN (ambreen wilks) is a quinolone antibiotic. It is used to treat certain kinds of bacterial infections. It will not work for colds, flu, or other viral infections. How should I use this medicine? Take this medicine by mouth with a full glass of water. Follow the directions on the prescription label. This medicine can be taken with or without food. Take your medicine at regular intervals. Do not take your medicine more often than directed. Do not skip doses or stop your medicine early even if you feel better. Do not stop taking except on your doctor's advice. A special MedGuide will be given to you by the pharmacist with each prescription and refill. Be sure to read this information carefully each time. Talk to your senior firmware engineer regarding the use of this medicine in children. While this drug may be prescribed for children as young as 6 months for selected conditions, precautions do apply. What side effects may I notice from receiving this medicine? Side effects that you should report to your doctor or health eye care professional as soon as possible: -allergic reactions like skin rash or hives, swelling of the face, lips, or tongue -changes in vision -confusion, nightmares or hallucinations -difficulty breathing -irregular heartbeat, chest pain -joint, muscle or tendon pain -pain or difficulty passing urine -persistent headache with or without blurred vision -redness, blistering, peeling or loosening of the skin, including inside the mouth -seizures -unusual pain, numbness, tingling, or weakness -vaginal irritation, discharge Side effects that usually do not require medical attention (report to your doctor or health eye care professional if they continue or are bothersome): -diarrhea -dry mouth -headache -stomach upset, nausea -trouble sleeping What may interact with this medicine? Do not take this medicine with any of the following medications: - arsenic trioxide - chloroquine - droperidol - medicines for irregular heart rhythm like amiodarone, disopyramide, dofetilide, flecainide, quinidine, procainamide, sotalol - some medicines for depression or mental problems like phenothiazines, pimozide, and ziprasidone This medicine may also interact with the following medications: - amoxapine -antacids - cisapride - dairy products - didanosine (ddI) buffered tablets or powder - haloperidol - multivitamins -NSAIDS, medicines for pain and inflammation, like ibuprofen or naproxen - retinoid products like tretinoin or isotretinoin - risperidone - some other antibiotics like clarithromycin or erythromycin - sucralfate - theophylline - warfarin What if I miss a dose? If you miss a dose, take it as soon as you remember. If it is almost time for your next dose, take only that dose. Do not take double or extra doses. Where should I keep my medicine? Keep out of the reach of children. Store at room temperature between 15 and 30 degrees C (59 and 86 degrees F). Keep in a tightly closed container. Throw away any unused medicine after the expiration date. What should I tell my health care provider before I take this medicine? They need to know if you have any of these conditions: cerebral disease irregular heartbeat kidney disease seizure disorder an unusual or allergic reaction to levofloxacin, other antibiotics or medicines, foods, dyes, or preservatives or trying to get breast-feeding What should I watch for while using this medicine? Tell your doctor or health eye care professional if your symptoms do not improve or if they get worse. Drink several glasses of water a day and cut down on drinks that contain caffeine. You must not get dehydrated while taking this medicine. You may get drowsy or dizzy. Do not drive, use machinery, or do anything that needs mental alertness until you know how this medicine affects you. Do not sit or stand up quickly, especially if you are an older patient. This reduces the risk of dizzy or fainting spells. This medicine can make you more sensitive to the sun. Keep out of the sun. If you cannot avoid being in the sun, wear protective clothing and use a sunscreen. Do not use sun lamps or tanning beds/booths. Contact your doctor if you get a sunburn. If you are a diabetic monitor your blood glucose carefully. If you get an unusual reading stop taking this medicine and call your doctor right away. Do not treat diarrhea with pycr-ogs-pkjdlue products. Contact your doctor if you have diarrhea that lasts more than 2 days or if the diarrhea is severe and watery. Avoid antacids, calcium, iron, and zinc products for 2 hours before and 2 hours after taking a dose of this medicine. You have been given the following additional information: Depression Levofloxacin Oral tablet Stay with responsible adult family member (or other responsible adult). (Electronically signed by Eloisa Steward PA-C 12/19/2016 23:27)
--- NOTE | 2016-12-20 00:06 | ED MED RECONCILIATION SUMMARY ---
Patient: ANDERSON COLON Medication Reconciliation Report [facility] VisitID: [id number] [address] [place] [address] 46y, F Registration Date/Time: 12/19/2016 Weight: 58.9 kg Height/Length: 65 in. BMI: 21.6 ALLERGIES: Penicillin The patient's Home Medications are listed below: NONE. The source(s) of the original Home Medication information: Not obtained. The following Medications were given to the patient in the Emergency Department: Levofloxacin [PO] PO 500 mg, administered: 12/19/2016 10:06:00 PM The following Medications were prescribed to the patient: Levaquin 500 mg: take 1 tab orally every day for 10 days. No refills. Substitution is permissible. -- Eloisa Steward PA-C
--- NOTE | 2016-12-20 00:06 | ED MED RECONCILIATION SUMMARY ---
Patient: ANDERSON COLON Medication Reconciliation Report [facility] VisitID: [id number] [address] [place] [address] 46y, F Registration Date/Time: 12/19/2016 Weight: 58.9 kg Height/Length: 65 in. BMI: 21.6 ALLERGIES: Penicillin The patient's Home Medications are listed below: NONE. The source(s) of the original Home Medication information: Not obtained. The following Medications were given to the patient in the Emergency Department: Levofloxacin [PO] PO 500 mg, administered: 12/19/2016 10:06:00 PM The following Medications were prescribed to the patient: Levaquin 500 mg: take 1 tab orally every day for 10 days. No refills. Substitution is permissible. -- Eloisa Steward PA-C
== END 2016-12-19 23:55 ==
LOC: ED SRH 18:59
DX: F33.1 Major depressive disorder, recurrent, moderate (principal); R45.851 Suicidal ideations; F10.220 Alcohol dependence with intoxication, uncomplicated; N82.8 Other female genital tract fistulae; N30.00 Acute cystitis without hematuria; F15.14 Other stimulant abuse with stimulant-induced mood disorder; F17.210 Nicotine dependence, cigarettes, uncomplicated; Z59.0 Homelessness; Z88.0 Allergy status to penicillin
CPT/HCPCS: 90074; 90098; 90100; 92760; 92761; 92762; 92763; 92764; 92765; 92766; 92767; 93070; 95059

== ENCOUNTER 2016-12-31 21:38 | Emergency (ER) | payer SELFPAY ==
--- NOTE | 2016-12-31 22:30 | ED CLINICAL REPORT ---
Clinical Report - Physicians/Mid Levels [facility] [address] [place] [address] 12/31/2016 21:39 Patient: ANDERSON HERNANDEZ Time Seen: 21:49. Arrived- By ambulance. Historian- patient. HISTORY OF PRESENT ILLNESS Chief Complaint: SKIN RASH. This started several days ago; Ms Henrandez believes that she has a MRSA infection in her L cheek. She make a tobacco poultice and has been applying it to the L cheek which is now red and painful. and is still present. It was gradual in onset. It is described as painful and burning. It has been located on the face. A cause has been identified. She has recently taken medication (tobacco poltice). Similar symptoms previously: ( Hx MRSA). REVIEW OF SYSTEMS No fever or abdominal pain. She has had a cough. PAST HISTORY PCP: MOE PROBLEMS: Alcohol Intoxication. Lifestyle / Substance Problems. Depression. Substance Abuse. Lifestyle / Substance Problems. UTI - Urinary Tract Infection. Cancer. --21:44 Lashay Barahona. Interventions ID band on patient. To treatment room. Medications: None. Allergies: Penicillin. SOCIAL HISTORY Smoker- current status unknown. History of drug use. Residence: Pt states she has a place in [place] . ADDITIONAL NOTES The nursing notes have been reviewed. PHYSICAL EXAM Vital Signs: 12/31/2016 23:00 BP: 122/60. HR: 80. RR: 20. O2 saturation: 98%. 12/31/2016 21:40 BP: 116/57. HR: 88. RR: 20. O2 saturation: 95%. Temp: 97.6 F. Pain level now: 5/10. Appearance: Alert. No acute distress. ENT: Pharynx normal. Respiratory: No respiratory distress. Abdomen: Nontender. Skin: Rash present on the left cheek. (Pt has a red slightly warm area of 4-5 cm diameter. It is slightly desquamating. There is no palpable abscess or phlegmon). Extremities: (There are a few small scattered red circles.). Neuro: No alteration in mental status. PROGRESS AND PROCEDURES Course of Care: The red area on the L cheek could be cellulitis but is even more likely chemical irritation from the tobacco poultice. As I was discharging the patient she told me she had vaginal bleeding or bleeding with urination. I ordered a cath UA. When the nurse began to carry out those orders the patient became verbally abusive and those orders could not be carried out. 23:28 12/31/16. Pt became abusive verbally when she was told she could not stay the night and would not receive sandwiches. She was discharged. She is calling 911 from the [facility] requesting to go to [place] by ambulance. I told police and EMS that I am happy to re assess her here. CLINICAL IMPRESSION Cellulitis of the left cheek area. HISTORY OF METHAMPHETAMINE ABUSE HISTORY OF VAGINAL BLEEDING. INSTRUCTIONS (YOU WANT HELP WITH METH - CONSIDER [facility] AND [facility]. SEE YOUR DR ABOUT THE BLEEDING FROM YOUR VAGINA). Prescription Medications: Bactrim DS 800 mg / 160 mg: take 1 tablet orally every 12 hours for 10 days. No refill. Follow-up: Follow up with your doctor in three days if not better. Understanding of the discharge instructions verbalized by patient. (Electronically signed by Chris Coffman MD 01/04/2017 13:44)
--- NOTE | 2016-12-31 22:30 | ED NURSING NOTES ---
Clinical Report - Nurses Located Within [facility] [address] [place] [address] 12/31/2016 21:39 [id number] Triage time 21:41 Dec 31 2016. Acuity: LEVEL 3. Chief Complaint: SKIN RASH. SEPSIS SCREEN: Sepsis Screen: negative. Infection suspected/documented. NESTOR COMA SCORE: [place] Coma Scale: 15- eyes open spontaneously (4); best verbal response- oriented x 4 (5); best motor response- obeys commands (6). --21:47 Lashay Barahona 21:40 12/31/16. BP: 116/57. HR: 88. RR: 20. O2 saturation: 95% on room air. Temp: 97.6 F (oral). Pain level now: 5/10. --21:47 Lashay Barahona. Weight: 65.7 kg stated. Height/Length: 65 inches Per Patient. BMI: 24.1. --21:45 Lashay Barahona. Medications None. --21:43 Lashay Barahona. Medication/allergy information source: the patient. --21:47 Lashay Barahona. Allergies Penicillin. --21:43 Lashay Barahona. History Arrived by EMS. Historian: patient. Unaccompanied. Location - generalized, head, left periorbital area, left cheek, left knee, left leg and left ankle. Onset. (3 days). It is described as itchy, burning and painful. ( Patient reports history of MRSA. Patient reports cellulitis on her left cheek, left leg and "other areas". She reports infection present for three days. Denies fever.). No fever. 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 EMS treatment CASKET INSPECTOR verbally communicated and report reviewed. See report. BP: 180 / 110. HR: 88. Temp: 98.0 oral. O2 saturation: 98 room air. PAST MEDICAL HX: Immunizations: status is unknown. Last normal menstrual period unknown- Pt reports history of cervical cancer, states she is always spotting. SOCIAL HX: Light tobacco smoker (cigarette)- less than 1/2 a pack per day. Alcohol use; consumes four beers a day. History of drug use: marijuana. (states she got off meth). No methamphetamines. No infectious disease exposure. ABUSE ASSESSMENT: No report of abuse. FALL RISK ASSESSMENT: Fall risk assessment completed. No fall risk identified. NUTRITIONAL RISK ASSESSMENT: The nutritional risk assessment revealed no deficiencies. FUNCTIONAL ASSESSMENT: Functional assessment: no impairments noted. LEARNING NEEDS ASSESSMENT: The learning needs assessment revealed no barriers. SKIN INTEGRITY ASSESSMENT: Skin integrity risk assessment completed. No skin integrity risk identified. --21:47 Lashay Barahona Primary physician ([facility]). --21:49 Lashay Barahona. PROBLEMS: Alcohol Intoxication. Lifestyle / Substance Problems. Depression. Substance Abuse. Lifestyle / Substance Problems. UTI - Urinary Tract Infection. Cancer. --21:44 Lashay Barahona. Interventions ID band on patient. To treatment room. --21:47 Lashay Barahona. PHYSICAL ASSESSMENT To room via stretcher. GENERAL / NEURO / PSYCH: Alert. The patient does not appear to be in acute distress. Oriented X 4. HEENT: Mucous membranes are pink. RESPIRATORY: Respirations not labored. CVS: Pulses within normal limits. SKIN: Skin is warm and dry. Medium sized area of erythema on the face and left leg- associated with swelling and tenderness. --21:48 Lashay Barahona. NURSING PROGRESS NOTES Pulse oximeter and NIBP monitor placed on patient; monitor alarms on. Patient gowned. Reassurance given to the patient. Patient identifiers checked. Call light placed in reach. Side rails up x 1. Patient placed in chair. Brakes of chair on. Patient ready for evaluation- chart flagged and ED physician notified. --21:48 Lashay Barahona ( Patient asking for food, informed patient she should wait until the provider has seen her. Patient given depends and wipes.). --22:10 Lashay Barahona 22:44 12/31/2016 TDAP IM 0.5 mL given. (Lot#: [id number], expiration date: 12/03/2018, [employer]r: [employer]i pasteur). Given in the right deltoid. Allergies verified and confirmed 5 rights. Vaccine information statement provided to the patient. --22:44 Lashay Barahona 22:44 12/31/2016 Ibuprofen PO Tablets 400 mg given. Allergies verified and confirmed 5 rights. --22:44 Lashay Barahona 22:45 12/31/2016 Bactrim DS (Sulfamethoxazole-TMP DS) PO Tablets 1 tab given. Allergies verified and confirmed 5 rights. --22:45 Lashay Barahona 22:47 12/31/16. ( Pt given her medication and informed that she will be discharged when her paper work is ready. Patient states, " You are all assholes, I cant believe you don't care. I have nowhere to go. You know you could do a crisis bed for me her in the hospital." Provider notified. Patient using profanity.). --22:47 Lashay Barahona. DISPOSITION / DISCHARGE Condition at departure: stable. The goals identified in the patient's plan of care were met. Learning barriers present. Ability to learn limited by poor cooperation. Discharge instructions provided and reviewed with the patient. Reviewed medication(s) side effects, precautions, dosing and course information. Prescription(s) given to the patient. Reviewed wound care and skin care instructions. Reviewed need for increased fluid intake. Patient verbalized understanding. Written instructions provided in [place]. ( Follow up with PCP or [facility] in three days. Pt states, " I have a fucking appointment tomorrow, shame on you, I am calling 911". Patient throwing crackers at staff, "Its job security for you to clean this up".). The patient was discharged by the physician. She was discharged home and unaccompanied at time of discharge. She left the Emergency Department ambulatory and via bus. FALL RISK ASSESSMENT: Fall risk assessment completed. No fall risk identified. --23:08 Lashay Barahona 23:00 12/31/16. BP: 122/60. HR: 80. RR: 20. O2 saturation: 98% on room air. --23:08 Lashay Barahona. Locked/Released at 01/01/2017 0:19 by Lashay Barahona,
--- NOTE | 2016-12-31 22:30 | ED NURSING NOTES ---
Clinical Report - Nurses [facility] [address] [place] [address] 12/31/2016 21:39 Patient: ANDERSON COLON [facility] [id number] TRIAGE Triage time 21:41 Dec 31 2016. Acuity: LEVEL 3. Chief Complaint: SKIN RASH. SEPSIS SCREEN: Sepsis Screen: negative. Infection suspected/documented. NESTOR COMA SCORE: [place] Coma Scale: 15- eyes open spontaneously (4); best verbal response- oriented x 4 (5); best motor response- obeys commands (6). --21:47 Lashay Barahona 21:40 12/31/16. BP: 116/57. HR: 88. RR: 20. O2 saturation: 95% on room air. Temp: 97.6 F (oral). Pain level now: 5/10. --21:47 Lashay Barahona. Weight: 65.7 kg stated. Height/Length: 65 inches Per Patient. BMI: 24.1. --21:45 Lashay Barahona. Medications None. --21:43 Lashay Barahona. Medication/allergy information source: the patient. --21:47 Lashay Barahona. Allergies Penicillin. --21:43 Lashay Barahona. History Arrived by EMS. Historian: patient. Unaccompanied. Location - generalized, head, left periorbital area, left cheek, left knee, left leg and left ankle. Onset. (3 days). It is described as itchy, burning and painful. ( Patient reports history of MRSA. Patient reports cellulitis on her left cheek, left leg and "other areas". She reports infection present for three days. Denies fever.). No fever. 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 EMS treatment BOAT HOIST OPERATOR HELPER verbally communicated and report reviewed. See report. BP: 180 / 110. HR: 88. Temp: 98.0 oral. O2 saturation: 98 room air. PAST MEDICAL HX: Immunizations: status is unknown. Last normal menstrual period unknown- Pt reports history of cervical cancer, states she is always spotting. SOCIAL HX: Light tobacco smoker (cigarette)- less than 1/2 a pack per day. Alcohol use; consumes four beers a day. History of drug use: marijuana. (states she got off meth). No methamphetamines. No infectious disease exposure. ABUSE ASSESSMENT: No report of abuse. FALL RISK ASSESSMENT: Fall risk assessment completed. No fall risk identified. NUTRITIONAL RISK ASSESSMENT: The nutritional risk assessment revealed no deficiencies. FUNCTIONAL ASSESSMENT: Functional assessment: no impairments noted. LEARNING NEEDS ASSESSMENT: The learning needs assessment revealed no barriers. SKIN INTEGRITY ASSESSMENT: Skin integrity risk assessment completed. No skin integrity risk identified. --21:47 Lashay Barahona Primary physician ([facility]). --21:49 Lashay Barahona. PROBLEMS: Alcohol Intoxication. Lifestyle / Substance Problems. Depression. Substance Abuse. Lifestyle / Substance Problems. UTI - Urinary Tract Infection. Cancer. --21:44 Lahsay Barahona. Interventions ID band on patient. To treatment room. --21:47 Lashay Barahona. PHYSICAL ASSESSMENT To room via stretcher. GENERAL / NEURO / PSYCH: Alert. The patient does not appear to be in acute distress. Oriented X 4. HEENT: Mucous membranes are pink. RESPIRATORY: Respirations not labored. CVS: Pulses within normal limits. SKIN: Skin is warm and dry. Medium sized area of erythema on the face and left leg- associated with swelling and tenderness. --21:48 Lashay Barahona. NURSING PROGRESS NOTES Pulse oximeter and NIBP monitor placed on patient; monitor alarms on. Patient gowned. Reassurance given to the patient. Patient identifiers checked. Call light placed in reach. Side rails up x 1. Patient placed in chair. Brakes of chair on. Patient ready for evaluation- chart flagged and ED physician notified. --21:48 Lashay Barahona ( Patient asking for food, informed patient she should wait until the provider has seen her. Patient given depends and wipes.). --22:10 Lashay Barahona 22:44 12/31/2016 TDAP IM 0.5 mL given. (Lot#: [id number], expiration date: 12/03/2018, Working Foreman: sanofi [employer]ur). Given in the right deltoid. Allergies verified and confirmed 5 rights. Vaccine information statement provided to the patient. --22:44 Lashay Barahona 22:44 12/31/2016 Ibuprofen PO Tablets 400 mg given. Allergies verified and confirmed 5 rights. --22:44 Lashay Barahona 22:45 12/31/2016 Bactrim DS (Sulfamethoxazole-TMP DS) PO Tablets 1 tab given. Allergies verified and confirmed 5 rights. --22:45 Lashay Barahona 22:47 12/31/16. ( Pt given her medication and informed that she will be discharged when her paper work is ready. Patient states, " You are all assholes, I cant believe you don't care. I have nowhere to go. You know you could do a crisis bed for me her in the hospital." Provider notified. Patient using profanity.). --22:47 Lashay Barahona. DISPOSITION / DISCHARGE Condition at departure: stable. The goals identified in the patient's plan of care were met. Learning barriers present. Ability to learn limited by poor cooperation. Discharge instructions provided and reviewed with the patient. Reviewed medication(s) side effects, precautions, dosing and course information. Prescription(s) given to the patient. Reviewed wound care and skin care instructions. Reviewed need for increased fluid intake. Patient verbalized understanding. Written instructions provided in Japanese. ( Follow up with PCP or [facility] clinic in three days. Pt states, " I have a fucking appointment tomorrow, shame on you, I am calling 911". Patient throwing crackers at staff, "Its job security for you to clean this up".). The patient was discharged by the physician. She was discharged home and unaccompanied at time of discharge. She left the Emergency Department ambulatory and via bus. FALL RISK ASSESSMENT: Fall risk assessment completed. No fall risk identified. --23:08 Lashay Barahona 23:00 12/31/16. BP: 122/60. HR: 80. RR: 20. O2 saturation: 98% on room air. --23:08 Lashay Barahona. Locked/Released at 01/01/2017 0:19 by Lashay Barahona,
--- NOTE | 2016-12-31 22:30 | ED CLINICAL REPORT ---
Clinical Report - Physicians/Mid Levels [facility] [address] [place] [address] 12/31/2016 21:39 Patient: ANDERSON HERNANDEZ Time Seen: 21:49. Arrived- By ambulance. Historian- patient. HISTORY OF PRESENT ILLNESS Chief Complaint: SKIN RASH. This started several days ago; Ms Hernandez believes that she has a MRSA infection in her L cheek. She make a tobacco poultice and has been applying it to the L cheek which is now red and painful. and is still present. It was gradual in onset. It is described as painful and burning. It has been located on the face. A cause has been identified. She has recently taken medication (tobacco poltice). Similar symptoms previously: ( Hx MRSA). REVIEW OF SYSTEMS No fever or abdominal pain. She has had a cough. PAST HISTORY PCP: MOE PROBLEMS: Alcohol Intoxication. Lifestyle / Substance Problems. Depression. Substance Abuse. Lifestyle / Substance Problems. UTI - Urinary Tract Infection. Cancer. --21:44 Lashay Barahona. Interventions ID band on patient. To treatment room. Medications: None. Allergies: Penicillin. SOCIAL HISTORY Smoker- current status unknown. History of drug use. Residence: Pt states she has a place in [place] . ADDITIONAL NOTES The nursing notes have been reviewed. PHYSICAL EXAM Vital Signs: 12/31/2016 23:00 BP: 122/60. HR: 80. RR: 20. O2 saturation: 98%. 12/31/2016 21:40 BP: 116/57. HR: 88. RR: 20. O2 saturation: 95%. Temp: 97.6 F. Pain level now: 5/10. Appearance: Alert. No acute distress. ENT: Pharynx normal. Respiratory: No respiratory distress. Abdomen: Nontender. Skin: Rash present on the left cheek. (Pt has a red slightly warm area of 4-5 cm diameter. It is slightly desquamating. There is no palpable abscess or phlegmon). Extremities: (There are a few small scattered red circles.). Neuro: No alteration in mental status. PROGRESS AND PROCEDURES Course of Care: The red area on the L cheek could be cellulitis but is even more likely chemical irritation from the tobacco poultice. As I was discharging the patient she told me she had vaginal bleeding or bleeding with urination. I ordered a cath UA. When the nurse began to carry out those orders the patient became verbally abusive and those orders could not be carried out. 23:28 12/31/16. Pt became abusive verbally when she was told she could not stay the night and would not receive sandwiches. She was discharged. She is calling 911 from the [facility] requesting to go to [place] by ambulance. I told police and EMS that I am happy to re assess her here. CLINICAL IMPRESSION Cellulitis of the left cheek area. HISTORY OF METHAMPHETAMINE ABUSE HISTORY OF VAGINAL BLEEDING. INSTRUCTIONS (YOU WANT HELP WITH METH - CONSIDER [facility]. SEE YOUR DR ABOUT THE BLEEDING FROM YOUR VAGINA). Prescription Medications: Bactrim DS 800 mg / 160 mg: take 1 tablet orally every 12 hours for 10 days. No refill. Follow-up: Follow up with your doctor in three days if not better. Understanding of the discharge instructions verbalized by patient. (Electronically signed by Chris Coffman MD 01/04/2017 13:44)
--- NOTE | 2016-12-31 22:31 | ED ORDER SUMMARY ---
..... Patient: ANDERSON COLON OrderSheet [facility] VisitID: [id number] [place] [address] 46y, F Registration Date/Time: 12/31/2016 ORDER SHEET Weight: 65.7 kg (stated) Allergies: Penicillin GENERAL ORDERS: - (CATH UA) (:12/31/2016 Mane CASTILLO) (Cancelled: Change in patient mimarepat30:59 HSoule) UA-Culture if indicated Urgent (:12/31/2016 Mane CASTILLO) (Ack 22:35 LMuller) (Cancelled: Change in patient dowmcqpgg21:59 HSoule) MEDICATION ORDERS: Tdap IM 0.5 mL (per protocol) (:12/31/2016 Mane CASTILLO) (Ack 22:25 HSoule) (22:44 HSoule) Ibuprofen PO 400 mg (NOW) (:12/31/2016 Mane CASTILLO) (Ack 22:33 HSoule) (22:44 HSoule) Bactrim DS PO (Tablet 800-160 mg) 1 tab (NOW) (:12/31/2016 Mane CASTILLO) (Ack 22:33 HSoule) (22:45 HSoule) IV FLUIDS: ORDER SHEET NOTES: [Electronically signed by Lashay Barahona (00:19 01/01/2017)] [Electronically signed by Chris Coffman MD (13:44 01/04/2017)] [Electronically locked/signed by Lashay Barahona (00:01/01/2017)]
--- NOTE | 2016-12-31 22:31 | ED ORDER SUMMARY ---
..... Patient: ANDERSON COLON OrderSheet [facility] VisitID: [id number] [place] [address] 46y, F Registration Date/Time: 12/31/2016 ORDER SHEET Weight: 65.7 kg (stated) Allergies: Penicillin GENERAL ORDERS: - (CATH UA) (:12/31/2016 Mane CASTILLO) (Cancelled: Change in patient dgurhipot28:59 HSoule) UA-Culture if indicated Urgent (:12/31/2016 Mane CASTILLO) (Ack 22:35 LMuller) (Cancelled: Change in patient psbghtlok69:59 HSoule) MEDICATION ORDERS: Tdap IM 0.5 mL (per protocol) (:12/31/2016 Mane CASTILLO) (Ack 22:25 HSoule) (22:44 HSoule) Ibuprofen PO 400 mg (NOW) (:12/31/2016 Mane CASTILLO) (Ack 22:33 HSoule) (22:44 HSoule) Bactrim DS PO (Tablet 800-160 mg) 1 tab (NOW) (:12/31/2016 Mane CASTILLO) (Ack 22:33 HSoule) (22:45 HSoule) IV FLUIDS: ORDER SHEET NOTES: [Electronically signed by Lashay Barahona (00:19 01/01/2017)] [Electronically signed by Chris Coffman MD (13:44 01/04/2017)] [Electronically locked/signed by Lashay Barahona (00:01/01/2017)]
--- NOTE | 2017-01-04 13:44 | ED MAR SUMMARY ---
..... Medication Administration Record [facility] [address] [place] [address] Patient: ANDERSON COLON Visit ID: [id number] 46y, F Weight: 65.7 kg Height/Length: 65 in BMI: 24.1 ALLERGIES: Penicillin Given 22:44 12/31/2016 Lashay Barahona, Medication Administered: TDAP [IM], Dose: 0.5 mL IM. Medication Ordered: Tdap IM 0.5 mL (per protocol). Given 22:44 12/31/2016 Lashay Barahona, Medication Administered: IBUPROFEN [PO], Dose: 400 mg Tablets PO. Medication Ordered: Ibuprofen PO 400 mg (NOW). Given 22:45 12/31/2016 Lashay Barahona, Medication Administered: BACTRIM DS [PO] (SULFAMETHOXAZOLE-TMP DS), Dose: 1 tab Tablets PO. Medication Ordered: Bactrim DS PO (Tablet 800-160 mg) 1 tab (NOW).
--- NOTE | 2017-01-04 13:44 | ED MED RECONCILIATION SUMMARY ---
Patient: ANDERSON COLON Medication Reconciliation Report [facility] VisitID: [id number] [place] [address] 46y, F Registration Date/Time: 12/31/2016 Weight: 65.7 kg Height/Length: 65 in. BMI: 24.1 ALLERGIES: Penicillin The patient's Home Medications are listed below: NONE. The source(s) of the original Home Medication information: patient The following Medications were given to the patient in the Emergency Department: TDAP [IM] IM 0.5 mL, administered: 12/31/2016 10:44:00 PM Ibuprofen [PO] PO 400 mg, administered: 12/31/2016 10:44:00 PM Bactrim DS [PO] PO 1 tab, administered: 12/31/2016 10:45:00 PM The following Medications were prescribed to the patient: Bactrim DS 800 mg / 160 mg: take 1 tablet orally every 12 hours for 10 days. No refill. -- Chris Coffman MD
--- NOTE | 2017-01-04 13:44 | ED DISCHARGE INSTRUCTIONS ---
Patient: ANDERSON COLON General Instructions [facility] VisitID: [id number] [place] [address] 46y, F Registration Date/Time: 12/31/2016 Cellulitis of the left cheek area. HISTORY OF METHAMPHETAMINE ABUSE HISTORY OF VAGINAL BLEEDING. INSTRUCTIONS (YOU WANT HELP WITH METH - CONSIDER [facility] CONSIDER [place] AND [place] HOMELESS SHELTERS. SEE YOUR DR ABOUT THE BLEEDING FROM YOUR VAGINA). Prescription Medications: Bactrim DS 800 mg / 160 mg: take 1 tablet orally every 12 hours for 10 days. No refill. Follow-up: Follow up with your doctor in three days if not better. Understanding of the discharge instructions verbalized by patient. ADDITIONAL INFORMATION Sulfamethoxazole, Trimethoprim Oral tablet What is this medicine? SULFAMETHOXAZOLE; TRIMETHOPRIM or SMX-TMP (suhl fuh meth OK nalini zohl; trye METH oh prim) is a combination of a sulfonamide antibiotic and a second antibiotic, trimethoprim. It is used to treat or prevent certain kinds of bacterial infections. It will not work for colds, flu, or other viral infections. How should I use this medicine? Take this medicine by mouth with a full glass of water. Follow the directions on the prescription label. Take your medicine at regular intervals. Do not take it more often than directed. Do not skip doses or stop your medicine early. Talk to your compensation manager regarding the use of this medicine in children. Special care may be needed. This medicine has been used in children as young as 2 months of age. What side effects may I notice from receiving this medicine? Side effects that you should report to your doctor or health women's health care nurse practitioner as soon as possible: allergic reactions like skin rash or hives, swelling of the face, lips, or tongue breathing problems fever or chills, sore throat irregular heartbeat, chest pain joint or muscle pain pain or difficulty passing urine red pinpoint spots on skin redness, blistering, peeling or loosening of the skin, including inside the mouth unusual bleeding or bruising unusually weak or tired yellowing of the eyes or skin Side effects that usually do not require medical attention (report to your doctor or health women's health care nurse practitioner if they continue or are bothersome): diarrhea dizziness headache loss of appetite nausea, vomiting nervousness What may interact with this medicine? Do not take this medicine with any of the following medications: aminobenzoate potassium dofetilide metronidazole This medicine may also interact with the following medications: MARYANNE inhibitors like benazepril, enalapril, lisinopril, and ramipril cyclosporine digoxin diuretics indomethacin medicines for diabetes methenamine methotrexate phenytoin potassium supplements pyrimethamine sulfinpyrazone tricyclic antidepressants warfarin What if I miss a dose? If you miss a dose, take it as soon as you can. If it is almost time for your next dose, take only that dose. Do not take double or extra doses. Where should I keep my medicine? Keep out of the reach of children. Store at room temperature between 20 to 25 degrees C (68 to 77 degrees F). Protect from light. Throw away any unused medicine after the expiration date. What should I tell my health care provider before I take this medicine? They need to know if you have any of these conditions: anemia asthma being treated with anticonvulsants if you frequently drink alcohol containing drinks kidney disease liver disease low level of folic acid or gfedoxp-2-qjsnauzqr dehydrogenase poor nutrition or malabsorption porphyria severe allergies thyroid disorder an unusual or allergic reaction to sulfamethoxazole, trimethoprim, sulfa drugs, other medicines, foods, dyes, or preservatives or trying to get breast-feeding What should I watch for while using this medicine? Tell your doctor or health women's health care nurse practitioner if your symptoms do not improve. Drink several glasses of water a day to reduce the risk of kidney problems. Do not treat diarrhea with over the counter products. Contact your doctor if you have diarrhea that lasts more than 2 days or if it is severe and watery. This medicine can make you more sensitive to the sun. Keep out of the sun. If you cannot avoid being in the sun, wear protective clothing and use a sunscreen. Do not use sun lamps or tanning beds/booths. You have been given the following additional information: Sulfamethoxazole, Trimethoprim Oral tablet (Electronically signed by Chris Coffman MD 01/04/2017 13:44)
--- NOTE | 2017-01-04 13:44 | ED MED RECONCILIATION SUMMARY ---
Patient: ANDERSON COLON Medication Reconciliation Report [facility] VisitID: [id number] [place] [address] 46y, F Registration Date/Time: 12/31/2016 Weight: 65.7 kg Height/Length: 65 in. BMI: 24.1 ALLERGIES: Penicillin The patient's Home Medications are listed below: NONE. The source(s) of the original Home Medication information: patient The following Medications were given to the patient in the Emergency Department: TDAP [IM] IM 0.5 mL, administered: 12/31/2016 10:44:00 PM Ibuprofen [PO] PO 400 mg, administered: 12/31/2016 10:44:00 PM Bactrim DS [PO] PO 1 tab, administered: 12/31/2016 10:45:00 PM The following Medications were prescribed to the patient: Bactrim DS 800 mg / 160 mg: take 1 tablet orally every 12 hours for 10 days. No refill. -- Chris Coffman MD
--- NOTE | 2017-01-04 13:44 | ED DISCHARGE INSTRUCTIONS ---
Patient: ANDERSON COLON General Instructions [facility] VisitID: [id number] [place] [address] 46y, F Registration Date/Time: 12/31/2016 Cellulitis of the left cheek area. HISTORY OF METHAMPHETAMINE ABUSE HISTORY OF VAGINAL BLEEDING. INSTRUCTIONS (YOU WANT HELP WITH METH - CONSIDER [facility] CONSIDER [place] AND [place] HOMELESS SHELTERS. SEE YOUR DR ABOUT THE BLEEDING FROM YOUR VAGINA). Prescription Medications: Bactrim DS 800 mg / 160 mg: take 1 tablet orally every 12 hours for 10 days. No refill. Follow-up: Follow up with your doctor in three days if not better. Understanding of the discharge instructions verbalized by patient. ADDITIONAL INFORMATION Sulfamethoxazole, Trimethoprim Oral tablet What is this medicine? SULFAMETHOXAZOLE; TRIMETHOPRIM or SMX-TMP (suhl fuh meth [place] nalini zohl; trye METH oh prim) is a combination of a sulfonamide antibiotic and a second antibiotic, trimethoprim. It is used to treat or prevent certain kinds of bacterial infections. It will not work for colds, flu, or other viral infections. How should I use this medicine? Take this medicine by mouth with a full glass of water. Follow the directions on the prescription label. Take your medicine at regular intervals. Do not take it more often than directed. Do not skip doses or stop your medicine early. Talk to your speech therapy director regarding the use of this medicine in children. Special care may be needed. This medicine has been used in children as young as 2 months of age. What side effects may I notice from receiving this medicine? Side effects that you should report to your doctor or health care director rn as soon as possible: allergic reactions like skin rash or hives, swelling of the face, lips, or tongue breathing problems fever or chills, sore throat irregular heartbeat, chest pain joint or muscle pain pain or difficulty passing urine red pinpoint spots on skin redness, blistering, peeling or loosening of the skin, including inside the mouth unusual bleeding or bruising unusually weak or tired yellowing of the eyes or skin Side effects that usually do not require medical attention (report to your doctor or health care director rn if they continue or are bothersome): diarrhea dizziness headache loss of appetite nausea, vomiting nervousness What may interact with this medicine? Do not take this medicine with any of the following medications: aminobenzoate potassium dofetilide metronidazole This medicine may also interact with the following medications: MARYANNE inhibitors like benazepril, enalapril, lisinopril, and ramipril cyclosporine digoxin diuretics indomethacin medicines for diabetes methenamine methotrexate phenytoin potassium supplements pyrimethamine sulfinpyrazone tricyclic antidepressants warfarin What if I miss a dose? If you miss a dose, take it as soon as you can. If it is almost time for your next dose, take only that dose. Do not take double or extra doses. Where should I keep my medicine? Keep out of the reach of children. Store at room temperature between 20 to 25 degrees C (68 to 77 degrees F). Protect from light. Throw away any unused medicine after the expiration date. What should I tell my health care provider before I take this medicine? They need to know if you have any of these conditions: anemia asthma being treated with anticonvulsants if you frequently drink alcohol containing drinks kidney disease liver disease low level of folic acid or llupfso-[id number]-axlvborzr dehydrogenase poor nutrition or malabsorption porphyria severe allergies thyroid disorder an unusual or allergic reaction to sulfamethoxazole, trimethoprim, sulfa drugs, other medicines, foods, dyes, or preservatives or trying to get breast-feeding What should I watch for while using this medicine? Tell your doctor or health care director rn if your symptoms do not improve. Drink several glasses of water a day to reduce the risk of kidney problems. Do not treat diarrhea with over the counter products. Contact your doctor if you have diarrhea that lasts more than 2 days or if it is severe and watery. This medicine can make you more sensitive to the sun. Keep out of the sun. If you cannot avoid being in the sun, wear protective clothing and use a sunscreen. Do not use sun lamps or tanning beds/booths. You have been given the following additional information: Sulfamethoxazole, Trimethoprim Oral tablet (Electronically signed by Chris Coffman MD 01/04/2017 13:44)
--- NOTE | 2017-01-04 13:44 | ED MAR SUMMARY ---
..... Medication Administration Record [facility] [address] [place] [address] Patient: ANDERSON COLON Visit ID: [id number] 46y, F Weight: 65.7 kg Height/Length: 65 in BMI: 24.1 ALLERGIES: Penicillin Given 22:44 12/31/2016 Lashay Barahona, Medication Administered: TDAP [IM], Dose: 0.5 mL IM. Medication Ordered: Tdap IM 0.5 mL (per protocol). Given 22:44 12/31/2016 Lashay Barahona, Medication Administered: IBUPROFEN [PO], Dose: 400 mg Tablets PO. Medication Ordered: Ibuprofen PO 400 mg (NOW). Given 22:45 12/31/2016 Lashay Barahona, Medication Administered: BACTRIM DS [PO] (SULFAMETHOXAZOLE-TMP DS), Dose: 1 tab Tablets PO. Medication Ordered: Bactrim DS PO (Tablet 800-160 mg) 1 tab (NOW).
== END 2016-12-31 23:08 | disposition home or self-care (01) ==
LOC: ED SRH 21:38
DX: L03.211 Cellulitis of face (principal); F15.21 Other stimulant dependence, in remission; Z87.898 Personal history of other specified conditions; Z88.0 Allergy status to penicillin; Z23 Encounter for immunization

== ENCOUNTER 2017-01-15 11:08 | Emergency (ER) | payer OTHER ==
--- NOTE | 2017-01-16 12:29 | ED ORDER SUMMARY ---
..... Patient: ANDERSON COLON OrderSheet [facility] VisitID: [id number] [place] [address] 46y, F Registration Date/Time: 01/15/2017 ORDER SHEET Weight: 64.4 kg (stated) Allergies: Penicillin GENERAL ORDERS: CBC w Diff Urgent (11:52 01/15/2017 LAbe R.N. per protocol) (Ack 11:55 KHoerner) (12:09 KHoerner) CMP Urgent (11:52 01/15/2017 LAbe R.N. per protocol) (Ack 11:55 KHoerner) (12:09 KHoerner) UA-Culture if indicated Urgent (11:52 01/15/2017 LAbe R.N. per protocol) (Ack 11:55 KHoerner) (12:23 LAbe R.N.) Urine Drug Screen Urgent (11:52 01/15/2017 LAbe R.N. per protocol) (Ack 11:55 KHoerner) (12:23 LAbe R.N.) Urine Urgent (11:52 01/15/2017 LAbe R.N. per protocol) (Ack 11:55 KHoerner) (12:23 LAbe R.N.) Acetaminophen Level Urgent (11:52 01/15/2017 LAbe R.N. per protocol) (Ack 11:55 KHoerner) (12:09 KHoerner) Ethyl Alcohol Urgent (11:52 01/15/2017 LAbe R.N. per protocol) (Ack 11:55 KHoerner) (12:09 KHoerner) Salicylate Level Urgent (11:52 01/15/2017 LAbe R.N. per protocol) (Ack 11:55 KHoerner) (12:09 KHoerner) TSH Urgent (11:53 01/15/2017 LAbe R.N. per protocol) (Ack 11:55 KHoerner) (12:09 KHoerner) Breathalyzer (12:20 01/15/2017 Tyler Silva) (12:23 LAbe R.N.) MEDICATION ORDERS: IV FLUIDS: IV NS : initial bolus none -, then 1000 mL/hr for X1 (NOW) (12:01/15/2017 Tyler Silva) (12:32 Francisco R.N.) Zofran IV 4 mg (NOW) (12:01/15/2017 Tyler Silva) (12:32 Francisco R.N.) ORDER SHEET NOTES: [Electronically signed by Steven Barber R.N. (13:34 01/16/2017)] [Electronically signed by Jesús Polo MD (14:53 01/19/2017)] [Electronically locked/signed by Steven Barber R.N. (13:34 01/16/2017)]
--- NOTE | 2017-01-16 12:29 | ED ORDER SUMMARY ---
..... Patient: ANDERSON COLON OrderSheet [facility] VisitID: [id number] [place] [address] 46y, F Registration Date/Time: 01/15/2017 ORDER SHEET Weight: 64.4 kg (stated) Allergies: Penicillin GENERAL ORDERS: CBC w Diff Urgent (11:52 01/15/2017 LAbe R.N. per protocol) (Ack 11:55 KHoerner) (12:09 KHoerner) CMP Urgent (11:52 01/15/2017 LAbe R.N. per protocol) (Ack 11:55 KHoerner) (12:09 KHoerner) UA-Culture if indicated Urgent (11:52 01/15/2017 LAbe R.N. per protocol) (Ack 11:55 KHoerner) (12:23 LAbe R.N.) Urine Drug Screen Urgent (11:52 01/15/2017 LAbe R.N. per protocol) (Ack 11:55 KHoerner) (12:23 LAbe R.N.) Urine Urgent (11:52 01/15/2017 LAbe R.N. per protocol) (Ack 11:55 KHoerner) (12:23 LAbe R.N.) Acetaminophen Level Urgent (11:52 01/15/2017 LAbe R.N. per protocol) (Ack 11:55 KHoerner) (12:09 KHoerner) Ethyl Alcohol Urgent (11:52 01/15/2017 LAbe R.N. per protocol) (Ack 11:55 KHoerner) (12:09 KHoerner) Salicylate Level Urgent (11:52 01/15/2017 LAbe R.N. per protocol) (Ack 11:55 KHoerner) (12:09 KHoerner) TSH Urgent (11:53 01/15/2017 LAbe R.N. per protocol) (Ack 11:55 KHoerner) (12:09 KHoerner) Breathalyzer (12:20 01/15/2017 Tyler Silva) (12:23 LAbe R.N.) MEDICATION ORDERS: IV FLUIDS: IV NS : initial bolus none -, then 1000 mL/hr for X1 (NOW) (12:01/15/2017 Tyler Silva) (12:32 Francisco R.N.) Zofran IV 4 mg (NOW) (12:01/15/2017 Tyler Silva) (12:32 Francisco R.N.) ORDER SHEET NOTES: [Electronically signed by Steven Barber R.N. (13:34 01/16/2017)] [Electronically signed by Jesús Polo MD (14:53 01/19/2017)] [Electronically locked/signed by Steven Barber R.N. (13:34 01/16/2017)]
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
--- NOTE | 2017-01-16 12:29 | ED CLINICAL REPORT ---
Clinical Report - Physicians/Mid Levels [facility] [address] [place] [address] 01/15/2017 11:15 Patient: ANDERSON COOLN Time Seen: 11:23; initial patient contact. Arrived- By ambulance. HISTORY OF PRESENT ILLNESS Chief Complaint: INTOXICATED. Wants to stop drinking. Symptoms started today. Substances abused: Last drink just prior to arrival. She is under influence in ED. The patient has had nausea, vomiting and suicidal thoughts. No diarrhea, tremors, seizure, agitation or hallucinations. Not confused. Has not been depressed. The symptoms are described as moderate. No injuries noted. Similar symptoms previously: Many times. Recent medical care: Not recently seen/assessed. REVIEW OF SYSTEMS No headache, chest pain, palpitations, cough or difficulty breathing. No difficulty with urination. All systems otherwise negative, except as recorded above. PAST HISTORY Cellulitis. Alcohol Intoxication. Lifestyle / Substance Problems. Depression. Substance Abuse. Lifestyle / Substance Problems. UTI - Urinary Tract Infection. Cancer. SOCIAL HISTORY Current every day smoker. Heavy alcohol use. Patient is a longstanding alcoholic. No drug use. ADDITIONAL NOTES The nursing notes have been reviewed. PHYSICAL EXAM Vital Signs: 01/15/2017 11:21 BP: 128/92. HR: 88. RR: 18. O2 saturation: 97%. Temp: 97.5 F. Have been reviewed. Hypertensive. Heart rate normal. Respiratory rate normal. Temperature normal. Oxygen saturation normal. Appearance: Alert. No acute distress. The patient's speech is slurred and odor of alcohol is present. Head: Head atraumatic. Eyes: Pupils equal, round and reactive to light. ENT: Airway intact. Moist mucous membranes. Neck: Normal inspection. CVS: Normal heart rate and rhythm. Heart sounds normal. Respiratory: No respiratory distress. Breath sounds normal. Abdomen: Soft and nontender. No organomegaly. Skin: Skin warm and dry. Normal skin color. Extremities: No lower extremity edema. Neuro: Alert. Oriented X 3. Mood/affect normal. Cranial nerves normal (as tested). No cerebellar findings. No motor deficit. No sensory deficit. LABS, X-RAYS, AND EKG Laboratory Tests: UA-Culture if indicated: (CLARY: 01/15/2017 12:13) ( [facility] 01/15/2017 12:35) Final results Test Result Flag Units (Reference) URINE COLOR STRAW URINE APPEARANCE CLEAR URINE GLUCOSE NEGATIVE (NEGATIVE) URINE BILIRUBIN NEGATIVE (NEGATIVE) URINE KETONE NEGATIVE (NEGATIVE) URINE SPECIFIC GRAVITY <= 1.005 L (1.010-1.030) URINE PH 6.0 (5.0-8.0) URINE PROTEIN NEGATIVE (NEGATIVE) URINE UROBILINOGEN 0.2 EU/dL (0.2-1.0) URINE NITRITE NEGATIVE (NEGATIVE) URINE BLOOD NEGATIVE (NEGATIVE) URINE LEUK ESTERASE NEGATIVE (NEGATIVE) URINE RBC NONE SEEN rbc/hpf (0-1) URINE WBC NONE SEEN wbc/hpf (0-1) URINE EPITHELIAL CELLS 0-1 EPI/hpf (0-5) URINE BACTERIA NONE SEEN (NONE SEEN) URINE COMMENT CULT NOT INDICATED URINE CULTURES ARE SET-UP BASED ON THE FOLLOWING CRITERIA:POSITIVE NITRITEPOSITIVE LEUKOCYTE ESTERASEGREATER THAN 10 WHITE BLOOD CELLSMODERATE (2+) OR GREATER BACTERIA Urine: (CLARY: 01/15/2017 12:13) ( [facility] 01/15/2017 12:29) Final results Test Result Flag Units (Reference) URINE NEGATIVE CBC w Diff: (CLARY: 01/15/2017 12:07) ( [facility] 01/15/2017 12:18) Final results Test Result Flag Units (Reference) WHITE BLOOD COUNT 4.8 K/uL (4.5-11.5) RED BLOOD COUNT 3.66 L M/uL (4.00-5.20) HEMOGLOBIN 12.5 gm/dL (12.0-16.0) HEMATOCRIT 36.8 % (36.0-46.0) MEAN CELL VOLUME 101 H fL (80-100) MEAN CORPUSCULAR HGB 34 pg (26-34) MEAN CORPUSCULAR HGB CONC 34 g/dL (31-37) RED CELL DISTRIBUTION WIDTH 16.4 H % (11.6-14.8) PLATELET COUNT 185 K/uL (150-400) NEUTROPHIL % 61.4 % (50-75) LYMPH % 25.2 % (25-40) MONO % 9.8 % (3-14) EOSINOPHIL % 1.9 % (0-4) BASOPHIL % 1.7 % (0-2) Urine Drug Screen: (CLARY: 01/15/2017 12:13) ( [facility] 01/15/2017 13:26) Final results Test Result Flag Units (Reference) AMPHETAMINE/METHAMPHETAMINE NEGATIVE (NEGATIVE) BARBITURATE NEGATIVE (NEGATIVE) BENZODIAZEPINE NEGATIVE (NEGATIVE) CANNABINOID NEGATIVE (NEGATIVE) COCAINE NEGATIVE (NEGATIVE) ECSTASY NEGATIVE (NEGATIVE) METHADONE NEGATIVE (NEGATIVE) OPIATE NEGATIVE (NEGATIVE) The urine drug screen is a qualitative screening test fordrug overdose and abuse. All screen results should beconsidered as presumptive.Drugs screened for are as follows:BenzodiazepinesCocaineAmphetamines/MetamphetaminesTHC (Tetrahydrocannabinol)OpiatesBarbituratesEcstasyMethadonePositive results are unconfirmed. For confirmation, notifythe lab for the specimen to be sent to the reference lab.All confirmations must be performed by a differentmethodology.The ingestion of natural herbal and plant productscontaining Ephedra/Ephedra metabolites can produce in urineone or more substances capable of cross reacting withamphetamine/methamphetamine immunoassays. These testsprovide a preliminary result only. A more specificalternative chemical method must be used to obtain aconfirmed analytical result. Salicylate Level: (CLARY: 01/15/2017 12:07) ( [facility] 01/15/2017 12:43) Final results Test Result Flag Units (Reference) SALICYLATE <2.8 L mg/dL (2.8-20) CMP: (CLARY: 01/15/2017 12:07) ( [facility] 01/15/2017 14:23) Final results Test Result Flag Units (Reference) GLUCOSE 94 mg/dL (70-110) BUN 19 H mg/dL (7-18) CREATININE 0.7 mg/dL (0.6-1.3) Estimated GFR >60 mL/min Estimated GFR- >60 mL/min Note: Persistent reduction over 3 months in eGFR<60 mL/min/1.73 m2 defines CKD. Patients with eGFR values>=60 mL/min/1.73 m2 may also have CKD if evidence ofpersistent proteinuria. Additional information may be foundat www.kidney.org. SODIUM 131 L mmol/L (136-145) POTASSIUM 3.8 mmol/L (3.5-5.1) CHLORIDE 98 mmol/L (98-107) CARBON DIOXIDE 25 mmol/L (21-32) CALCIUM 7.7 L mg/dL (8.5-10.1) TOTAL PROTEIN 7.2 g/dL (6.4-8.2) ALBUMIN 3.5 g/dL (3.3-5.0) BILIRUBIN, TOTAL 0.3 mg/dL (0.0-1.0) ALKALINE PHOSPHATASE 77 U/L (46-116) AST (SGOT) 42 H U/L (15-37) ALT (SGPT) 40 U/L (12-78) ACETAMINOPHEN < 0.2 L ug/mL (10-30) ETHYL ALCOHOL 261 H mg/dL (3-10) THYROID STIMULATING HORMONE 0.825 uIU/mL (0.34-3.74) . PROGRESS AND PROCEDURES Consult obtained from mental health. Case discussed. Consultation performed in ED. Patient/family counseled. Old medical records reviewed. Disposition: Transferred. CLINICAL IMPRESSION Uncomplicated alcohol intoxication with alcohol dependence. Suicidal ideation. Depression. (Electronically signed by Jesús Polo MD 01/19/2017 14:53)
--- NOTE | 2017-01-19 14:55 | ED DISCHARGE INSTRUCTIONS ---
Patient: ANDERSON COLON General Instructions [facility] VisitID: [id number] [address] [place] [address] 46y, F Registration Date/Time: 01/15/2017 Uncomplicated alcohol intoxication with alcohol dependence. Suicidal ideation. Depression. (Electronically signed by Jesús Polo MD 01/19/2017 14:53)
--- NOTE | 2017-01-19 14:55 | ED MAR SUMMARY ---
..... Medication Administration Record [facility] [address] [place] [address] Patient: ANDERSON COLON Visit ID: [id number] 46y, F Weight: 64.4 kg Height/Length: 65 in BMI: 23.7 ALLERGIES: Penicillin Start 12:32 01/15/2017 Eboni Castillo R.N., Stop 13:38 01/15/2017 Eboni Castillo R.N. Medication Administered: IV NS (SALINE), Dose: IV Fluids, Rate: 1000 mL/hr, Dispensed: 1000 mL bag, Site: #1 left AC. Medication Ordered: IV NS : initial bolus none -, then 1000 mL/hr for X1 (NOW). Given 12:32 01/15/2017 Eboni Castillo R.N. Medication Administered: ZOFRAN [IVP] (ONDANSETRON HCL), Dose: 4 mg IVP, Site: #1 left AC. Medication Ordered: Zofran IV 4 mg (NOW).
--- NOTE | 2017-01-19 14:55 | ED MED RECONCILIATION SUMMARY ---
Patient: ANDERSON COLON Medication Reconciliation Report [facility] VisitID: [id number] [address] [place] [address] 46y, F Registration Date/Time: 01/15/2017 Weight: 64.4 kg Height/Length: 65 in. BMI: 23.7 ALLERGIES: Penicillin The patient's Home Medications are listed below: NONE. The source(s) of the original Home Medication information: patient The following Medications were given to the patient in the Emergency Department: IV NS IV Fluids bolus 0, then 1000 mL/hr, administered: 01/15/2017 12:32:00 PM Zofran [IVP] IVP 4 mg, administered: 01/15/2017 12:32:00 PM The following Medications were prescribed to the patient: None.
--- NOTE | 2017-01-19 14:55 | ED MAR SUMMARY ---
..... Medication Administration Record [facility] [address] [place] [address] Patient: ANDERSON COLON Visit ID: [id number] 46y, F Weight: 64.4 kg Height/Length: 65 in BMI: 23.7 ALLERGIES: Penicillin Start 12:32 01/15/2017 Eboni Castillo R.N., Stop 13:38 01/15/2017 Eboni Castillo R.N. Medication Administered: IV NS (SALINE), Dose: IV Fluids, Rate: 1000 mL/hr, Dispensed: 1000 mL bag, Site: #1 left AC. Medication Ordered: IV NS : initial bolus none -, then 1000 mL/hr for X1 (NOW). Given 12:32 01/15/2017 Eboni Castillo R.N. Medication Administered: ZOFRAN [IVP] (ONDANSETRON HCL), Dose: 4 mg IVP, Site: #1 left AC. Medication Ordered: Zofran IV 4 mg (NOW).
--- NOTE | 2017-01-19 14:55 | ED DISCHARGE INSTRUCTIONS ---
Patient: ANDERSON COLON General Instructions [facility] VisitID: [id number] [address] [place] [address] 46y, F Registration Date/Time: 01/15/2017 Uncomplicated alcohol intoxication with alcohol dependence. Suicidal ideation. Depression. (Electronically signed by Jesús Polo MD 01/19/2017 14:53)
--- NOTE | 2017-01-19 14:55 | ED MED RECONCILIATION SUMMARY ---
Patient: ANDERSON COLON Medication Reconciliation Report [facility] VisitID: [id number] [address] [place] [address] 46y, F Registration Date/Time: 01/15/2017 Weight: 64.4 kg Height/Length: 65 in. BMI: 23.7 ALLERGIES: Penicillin The patient's Home Medications are listed below: NONE. The source(s) of the original Home Medication information: patient The following Medications were given to the patient in the Emergency Department: IV NS IV Fluids bolus 0, then 1000 mL/hr, administered: 01/15/2017 12:32:00 PM Zofran [IVP] IVP 4 mg, administered: 01/15/2017 12:32:00 PM The following Medications were prescribed to the patient: None.
== END 2017-01-15 12:29 ==
LOC: ED SRH 11:08
DX: F10.220 Alcohol dependence with intoxication, uncomplicated (principal); R45.851 Suicidal ideations; F32.9 Major depressive disorder, single episode, unspecified; F17.200 Nicotine dependence, unspecified, uncomplicated
CPT/HCPCS: 90004; 90100; 92010; 92760; 92761; 92762; 92763; 92764; 92765; 92766; 92767; 92780; 93070; 93140; 95059; 97000